=== PATIENT | female | born 1950 | race Caucasian/White ===

== ENCOUNTER → 2016-08-17 12:48 | Outpatient (CLI) | payer MEDICARE ==
[2012-09-22 14:50] VITALS: BMI 24.5
[~2016-08-17 12:48] MED LIST: BACTROBAN NASAL1 GM NASAL; CARAFATE1 G PO; COREG25 MG PO; COZAAR50 MG PO; FLUTICASONE PRO16 GM NASAL; GABAPENTIN100 MG PO; HYDROCODON-ACE1 EAC7 PO; LASIX40 MG PO; METOLAZONE2.5 MG PO; NOVOLIN N100 U/ML SQ; OMEPRAZOLE20 M1 PO; ZOLOFT100 MG PO
[2016-09-05 11:02] VITALS: BMI 25.6
== END | disposition home or self-care (01) ==
LOC: D.MRI 12:48
DX: M19.011 Primary osteoarthritis, right shoulder (principal)

== ENCOUNTER → 2016-08-28 10:45 | Outpatient (CLI) | payer MEDICARE ==
[2012-09-22 14:50] VITALS: BMI 24.5
[2016-09-05 11:02] VITALS: BMI 25.6
== END | disposition home or self-care (01) ==
LOC: D.LABREF 10:45
DX: M19.011 Primary osteoarthritis, right shoulder (principal); Z11.8 Encounter for screening for other infectious and parasitic diseases

== ENCOUNTER 2016-08-30 09:00 | Inpatient (IN) | payer MEDICARE ==
[~2016-08-30] VITALS: Ht 157.5 cm; Wt 71.5 kg
[~2016-08-30 09:00] MED LIST changes: -FLUTICASONE PRO16 GM NASAL; -HYDROCODON-ACE1 EAC7 PO; -ZOLOFT100 MG PO
[2016-08-30 09:18] LABS: BASOPHILS 0.1 % (0.0-2.0); EOSINOPHILS 3.5 % (0-7); HEMATOCRIT 28.6 % (36.0-48.0); HEMOGLOBIN 8.8 g/dL (12-16); IMMATURE GRANULOCYTES 0.7 % (0-5); LYMPHOCYTES 14.9 % (15-50); MCH 27.8 pg (26.0-34.0); MCHC 30.8 g/dL (31.0-37.0); MCV 90.2 fL (80.0-100.0); MEAN PLATELET VOLUME 11.1 fL (7.4-10.4); MONOCYTES 7.7 % (2-11); NEUTROPHILS 73.1 % (40-80); RBC 3.17 10x6/uL (4.00-5.40); WBC 6.9 10x3/uL (4.8-10.8)
[2016-08-30 09:20] LABS: PLATELET COUNT 139 10x3/uL (130-400)
[2016-08-30 09:23] LABS: APPEARANCE HAZY (CLEAR); BILIRUBIN NEGATIVE (NEGATIVE); COLOR YELLOW (YELLOW); GLUCOSE NEGATIVE (NEGATIVE); KETONE NEGATIVE (NEGATIVE); LEUKOCYTE ESTERASE 2+ (NEGATIVE); NITRITE NEGATIVE (NEGATIVE); PROTEIN 1+ mg/dL (NEGATIVE); UROBILINOGEN NORMAL (NORMAL)
[2016-08-30 09:24] LABS: BACTERIA MODERATE /hpf (NONE SEEN); RED CELLS - URINE NONE SEEN /hpf (0-5)
[2016-08-30 09:33] LABS: APTT 32.8 SECONDS (22.8-39.4); INR 1.09 (0.85-1.17); PROTIME 13.9 SECONDS (11.6-15.0)
[2016-08-30 09:39] LABS: ANION GAP 14.9 mmol/L (8-16); CALCIUM 8.4 mg/dL (8.5-10.1); CARBON DIOXIDE 23.9 mmol/L (21.0-32.0); CREATININE - SERUM 2.1 mg/dL (0.6-1.3); POTASSIUM - SERUM 3.8 mmol/L (3.5-5.1)
[2016-08-30] MEDS ORDERED: ZOLOFT100 MG PO (09:39)
[2016-08-30] MEDS ORDERED: FLUTICASONE PRO16 GM NASAL (09:42)
[2016-09-04] VITALS (22 sets, daily range): BP systolic 78–151; BP diastolic 37–71; BMI 25.6
--- NOTE | 2016-09-04 08:44 | NUR ---
RIGHT ARM AND SHOULDER WASHED WITH HIBICLENS AND ALCOHOL PRIOR TO CHLORPREP PER DN
--- NOTE | 2016-09-04 10:00 | NUR ---
RECEIVED TO ROOM 2211 VIA BED FROM PACU. A/O X3. NO C/O PAIN OR DISCOMFORT. EPIDURAL IN PLACE. RIGHT ARM IN IMMOBILIZER. DENIES NEEDS.
[2016-09-04 10:31] LABS: HEMATOCRIT 22.1 % (36.0-48.0)
[2016-09-04 11:00] LABS: HEMOGLOBIN 7.1 g/dL (12-16)
--- NOTE | 2016-09-04 12:18 | NUR ---
TRACY SEN FOR DR. HALE NOTIFIED OF POST OP H&H.
[2016-09-04 15:41] LABS: ANION GAP 12.3 mmol/L (8-16); CALCIUM 7.1 mg/dL (8.5-10.1); CARBON DIOXIDE 22.8 mmol/L (21.0-32.0); CREATININE - SERUM 2.1 mg/dL (0.6-1.3); PHOSPHOROUS 5.4 mg/dL (2.5-4.9); POTASSIUM - SERUM 4.1 mmol/L (3.5-5.1)
--- NOTE | 2016-09-04 16:49 | NUR ---
PRBC UP AT THIS TIME. AT [facility]. VSS. DENIES NEEDS.
--- NOTE | 2016-09-04 17:05 | NUR ---
TRANSFUSION CONTINUES WITHOUT COMPLICATIONS. VSS. DENIES NEEDS.
--- NOTE | 2016-09-04 18:05 | NUR ---
ATE ALL OF SUPPER TRAY. TRANSFUSION CONTINUES WITHOUT COMPLICATIONS. DENIES NEEDS. NO CHANGES NOTED.
--- NOTE | 2016-09-04 19:22 | NUR ---
TRANSFUSION IS COMPLETE AT THIS TIME. VSS. BP IS ON THE LOW SIDE. WILL MONITOR.
[2016-09-05] VITALS: BP 96/59
[2016-09-05 04:00] VITALS: BP 101/57
[2016-09-05 05:47] LABS: HEMATOCRIT 23.6 % (36.0-48.0); MCH 28.7 pg (26.0-34.0); MCHC 31.8 g/dL (31.0-37.0); MCV 90.4 fL (80.0-100.0); MEAN PLATELET VOLUME 11.2 fL (7.4-10.4); RBC 2.61 10x6/uL (4.00-5.40); RDW 16.7 % (11.5-14.5); WBC 7.3 10x3/uL (4.8-10.8)
--- NOTE | 2016-09-05 06:01 | NUR ---
PATIENT RESTING WITH EYES CLOSED. NO VISUAL SIGNS OF DISTRESS. PATIENT'S BED IN LOWEST POSITION AND CALL LIGHT WITHIN REACH.
[2016-09-05 06:06] LABS: ANION GAP 16.1 mmol/L (8-16); POTASSIUM - SERUM 4.1 mmol/L (3.5-5.1)
[2016-09-05 06:14] LABS: CALCIUM 6.9 mg/dL (8.5-10.1); CREATININE - SERUM 2.7 mg/dL (0.6-1.3)
[2016-09-05 06:17] LABS: HEMOGLOBIN 7.5 g/dL (12-16)
--- NOTE | 2016-09-05 08:05 | NUR ---
PT SEEN AND ASSESSED. STATES PAIN CONTROLLED AT 3/10 WITH NO MOVEMENT AND USE OF NARCOTICS AND VICE DETECTIVE MACHINE. IMMOBILIZER AND ICE IN PLACE TO RIGHT SHOULDER. ABLE TO MOVE FINGERS AND ARE WARM AND PINK. HAS NOT VOIDED BUT MINIMAL ALL NIGHT. ENCOURAGED USE OF BEDPAN AND WOULD GIVE TILL 1000 TO VOID WITHOUT IN/OUT CATH. BED ALARM ON. FAMILY AT BEDSIDE
[2016-09-05 08:18] VITALS: BP 89/52
--- NOTE | 2016-09-05 10:53 | NUR ---
called to room per cnas. hard to arouse pt sitting up in chair. rouses after much stimulation. knows where she is. instructed to deep breathe and cough-small crackles heard but states she was a smoker up until 2 years ago. jaron wilson in chair under patient for safety
--- NOTE | 2016-09-05 11:00 | NUR ---
PT OXYGEN ON RA 87-88%. PLACED ON OXYGEN AND REGULATED AT 2LNC TO SAT OF 97-98%. STILL SLEEPY. CALL PLACED TO THERAPY TO PLACE BACK IN BED.
[2016-09-05 11:02] VITALS: Ht 157.5 cm; Wt 71.5 kg
[2016-09-05 11:41] VITALS: BP 73/48
--- NOTE | 2016-09-05 11:55 | NUR ---
PT MORE AWAKE AND ALERT NOW. STATES HAS NO URGE TO VOID. IN AND OUT CATH DONE WITH 700CC YELLOW URINE RETURNED. TOLERATED PROCEDURE WITHOUT COMPLAINTS. BED ALARM ON WITH CALL LIGHT IN REACH
--- NOTE | 2016-09-05 14:28 | NUR ---
PT UNABLE TO VOID ON BEDPAN. WILL TRY AGAIN. DOES NOT FEEL THE URGE TO VOID
--- NOTE | 2016-09-05 15:42 | NUR ---
BP RECHECKED. 100/50. PT AWAKE AND ALERT. STILL NO URGE TO VOID.
[2016-09-05 15:53] VITALS: BP 100/51
--- NOTE | 2016-09-05 18:07 | NUR ---
PT HAS NOT VOIDED SINCE IN/OUT CATH AT 1200 TODAY. HAS BEEN ON BEDPAN X 1 SINCE THEN BUT DOES NOT FEEL THE URGE TO PEE. MORE AWAKE AND ALERT THIS AFTERNOON. C/O DISCOMFORT TO RIGHT SHOULDER AND NORCO GIVEN. BED ALARM ON FOR SAFETY AND CALL LIGHT IN REACH
[2016-09-05 20:00] VITALS: BP 93/53
--- NOTE | 2016-09-05 20:02 | NUR ---
PATIENT SLEEPING IN BED. AROUSES TO VOICE BUT IS DROWSY. HOB 60 DEGREES. RR EVEN AND UNLABORED. O2 @ 2L VIA NC.0 S/S OF DISTRESS. IV TO LEFT FA S/L WITH NO REDNESS OR SWELLING. IMMOBILIZER TO RIGHT SHOULDER AND DRESSING CDI. B/A ON. SRX2. BED LOW. CALL LIGHT WITHIN REACH.
--- NOTE | 2016-09-05 21:40 | NUR ---
ASSESSMENT COMPLETE. NIGHTTIME MEDS GIVEN. PATIENT IS STATING THAT HER SHOULDER IS SORE BUT SHE IS STILL VERY DROWSY AND BP IS LOW. WILL CONTINUE TO MONITOR.
[2016-09-06] VITALS (14 sets, daily range): BP systolic 84–134; BP diastolic 46–74
--- NOTE | 2016-09-06 03:00 | NUR ---
PATIENT HAS NOT VOIDED ALL SHIFT. BLADDER SCAN REVEALED 400ML. PUT PATIENT ON BEDPAN BUT SHE WAS STILL UNABLE TO URINATE. 400 ML OBTAINED THROUGH IN AND OUT CATH.
[2016-09-06 05:34] LABS: BASOPHILS 0 % (0.0-2.0); EOSINOPHILS 1.6 % (0-7); IMMATURE GRANULOCYTES 0.4 % (0-5); LYMPHOCYTES 7.6 % (15-50); MCH 28.9 pg (26.0-34.0); MCHC 32.4 g/dL (31.0-37.0); MCV 89.4 fL (80.0-100.0); MEAN PLATELET VOLUME 11.9 fL (7.4-10.4); NEUTROPHILS 82.4 % (40-80); PLATELET COUNT 105 10x3/uL (130-400); RBC 2.35 10x6/uL (4.00-5.40); RDW 16.6 % (11.5-14.5); WBC 8.4 10x3/uL (4.8-10.8)
[2016-09-06 06:03] LABS: ANION GAP 17.9 mmol/L (8-16); CALCIUM 7.1 mg/dL (8.5-10.1); CARBON DIOXIDE 18.8 mmol/L (21.0-32.0); PHOSPHOROUS 5.5 mg/dL (2.5-4.9); POTASSIUM - SERUM 3.7 mmol/L (3.5-5.1)
[2016-09-06 06:31] LABS: CREATININE - SERUM 3.7 mg/dL (0.6-1.3)
[2016-09-06 06:35] LABS: HEMOGLOBIN 6.8 g/dL (12-16)
--- NOTE | 2016-09-06 07:50 | NUR ---
AWAKE AND ALERT THIS MORNING. WEANED OFF OF OXYGEN AND SATURATIONS 100% ON ROOM AIR. BED ALARM ON AND IN WORKING ORDER. SCD'S ON. SRX2 WITH BED IN LOWEST POSITINO AND WHEELS LOCKED. CALL LIGHT IN REACH, WILL CONTINUE WITH PLAN OF CARE.
--- NOTE | 2016-09-06 07:52 | NUR ---
AWAKE AND ALERT AT THIS TIME. C/O PAIN 8/10 INCISIONALLY. IMMOBILIZER TO RIGHT SHOULDER PRESENT. BED ALARM ON AND SRX2 WITH BED IN LOWEST POSITION AND WHEELS LOCKED. REQUESTING ICE AT THIS TIME. WILL CONTINUE WITH PLAN OF CARE.
--- NOTE | 2016-09-06 09:20 | NUR ---
Patient Name: FRANCA BECERRIL Admission Status: Elective Accout number: [id number] Admission Date: 09-04-2016 : 1950 Admission Diagnosis: Attending: MARTIN Current LOS: 2 Anticipated DC Date: 09-08-2016 Planned Disposition: Home Primary Insurance: MEDICARE A & B Discharge Planning Comments: CM MET WITH PATIENT REGARDING D/C NEEDS AND PLANS. PATIENT STATED SHE LIVES WITH HER SPOUSE AND HE WILL DRIVE HER HOME AT DISCHARGE. PATIENT HAS 2 STEPS W/RAILS TO ENTER HOME AND NO STAIRS INSIDE. PATIENT STATED SHE IS INDEPENDENT WITH HER CARE AND HAS A WALKER, WHEELCHAIR, CANE, BS COMMODE, SHOWER CHAIR, NEBULIZER, AND GLUCOMETER AT HOME. PATIENT CHECKS HER BLOOD SUGAR 2X A DAY. PATIENTS PCP IS DR. RACHEL AND PHARMACY IS [facility]. PATIENT DOES NOT THINK SHE WILL NEED HOME HEALTH. CM WILL CONTINUE TO FOLLOW PATIENT WITH D/C NEEDS AND PLANS. PCP [facility] ) DM (SPOUSE) [phone] Chief Of Hospital Medicine: Shyann Wood Is the patient Alert and Oriented? Yes 0 * How many steps to enter\exit or inside your home? 2/RAILS 0 * PCP DR. RACHEL 0 * Pharmacy [facility] IN [facility] 0 * Preadmission Environment Home with Family 0 * ADLs Independent 0 * Equipment Bedside Commode Cane Glucometer Nebulizer Shower Chair Walker Wheelchair 0 * List name and contact numbers for known caregivers / representatives who currently or will assist patient after discharge: DM (SPOUSE) [phone] 0 * Community resources currently utilized None 0 * Additional services required to return to the preadmission environment? Yes 0 * Can the patient safely return to the preadmission environment? Yes 0 * Has this patient been hospitalized within the prior 30 days at any hospital? No 0 Grand Total: 0
--- NOTE | 2016-09-06 09:50 | NUR ---
IV TO LEFT FOREARM CHECKED FOR PATENCY. NO BLOOD RETURN PRESENT, BUT NO S/S OF INFILTRATION PRESENT. PROVIDED PT WITH INCENTIVE SPIROMETER AND INSTRUCTED ON USE. PT DEMONSTRATED PROPER USE WITH 1,000 ML OF INSPIRATORY VOLUME. UP IN CHAIR WITH ABIMAEL MAT ALARM PER PHYSICAL THERAPY. CALL LIGHT AND WATER IN REACH. WILL CONTINUE WITH PLAN OF CARE.
--- NOTE | 2016-09-06 10:35 | NUR ---
BLOOD TRANSFUSION INITIATED PER ORDER.
--- NOTE | 2016-09-06 10:50 | NUR ---
TRANSFUSION DELAYED D/T IV TO LEFT FOREARM LEAKING AROUND CATH TIP INSERTION SITE.
--- NOTE | 2016-09-06 11:15 | NUR ---
TRANSFUSION OF PRBC'S RE-INIATED AT THIS TIME TO NEW LEFT HAND 20G IV.
--- NOTE | 2016-09-06 11:27 | NUR ---
IV access-20 gauge intracon inserted in left hand x 1 attempt. Damaris Woods RN
--- NOTE | 2016-09-06 14:45 | NUR ---
BLADDER SCAN PERFORMED AND 190 ML OF URINE IN BLADDER. NOTIFIED MCKINLEY THORPE WITH RENAL.
--- NOTE | 2016-09-06 15:30 | NUR ---
16FR MENDEZ CATHETER PLACED X1 ATTEMPT PER ORDER IN STERILE FASHION. PT TOLERATED WITH MINIMAL C/O PAIN AND DISCOMFORT. URINE IS GREENISH, YELLOW IN COLOR AND SEDIMENT PRESENT. POST CARE MENDEZ WIPES USED AND STAT LOCK APPLIED TO LEFT LEG. CALL LIGHT IN REACH, DENIES FURTHER NEEDS. WILL CONTINUE WITH PLAN OF CARE.
--- NOTE | 2016-09-06 22:41 | NUR ---
PT IS AWAKE WATCHING TV WITH NO DISTRESS NOTED. EVEN UNLABORED RESPIRATIONS. HER ARM IS IN A SLING ORDERED. THE BED IS LOW, RAILS UP X'S 2 WITH THE CALL LIGHT AT HAND.
[2016-09-07] VITALS: BP 134/62
[2016-09-07 04:00] VITALS: BP 95/62
[2016-09-07 04:57] LABS: BASOPHILS 0.1 % (0.0-2.0); EOSINOPHILS 1.7 % (0-7); HEMATOCRIT 24.7 % (36.0-48.0); HEMOGLOBIN 8.1 g/dL (12-16); IMMATURE GRANULOCYTES 0.7 % (0-5); LYMPHOCYTES 6.6 % (15-50); MCH 28.8 pg (26.0-34.0); MCHC 32.8 g/dL (31.0-37.0); MCV 87.9 fL (80.0-100.0); MEAN PLATELET VOLUME 11.5 fL (7.4-10.4); MONOCYTES 7.8 % (2-11); NEUTROPHILS 83.1 % (40-80); PLATELET COUNT 104 10x3/uL (130-400); RBC 2.81 10x6/uL (4.00-5.40); RDW 16.3 % (11.5-14.5); WBC 8.2 10x3/uL (4.8-10.8)
[2016-09-07 05:24] LABS: ANION GAP 19.9 mmol/L (8-16); CALCIUM 7.5 mg/dL (8.5-10.1); CARBON DIOXIDE 15.1 mmol/L (21.0-32.0); CREATININE - SERUM 3.4 mg/dL (0.6-1.3); PHOSPHOROUS 5.2 mg/dL (2.5-4.9)
--- NOTE | 2016-09-07 08:00 | NUR ---
PATIENT RECEIVED IN MID LEMON POSITION RESTING QUIETLY. RESPIRATIONS EVEN AND UNLABORED. SIDE RAILS UP X2. BED IN LOW POSITION. CALL LIGHT IN REACH. BED ALARM ON. IVF DECREASED PER ORDERS
[2016-09-07 08:13] VITALS: BP 167/77
--- NOTE | 2016-09-07 09:15 | NUR ---
PATIENT ALERT IN BED. RESPIRATIONS EVEN AND UNLABORED. SCHEDULED MEDICATION ADMINISTERED WELL PRN NORCO. MENDEZ CARE PROVIDED. MENDEZ CATH CARE PROVIDED PER PROTOCOL WITH PROVIDED RODGERS WIPES. MENDEZ D/C PER ORDER BY ANN MARIE LOPEZ. APPROXIMATELY 150CC URINE REMAINED IN COLLECTION BAG. WELL TOLERATED. INSTRUCTED TO CALL FOR ASSIST WHEN NEEDED TO GO TO THE RESTROOM. STATES UNDERSTANDING. CALL LIGHT IN REACH. SIDE RAILS UP X2. BED IN LOW POSITION.
--- NOTE | 2016-09-07 10:30 | NUR ---
PATIENT SITTING UP IN CHAIR AT BEDSIDE. RESPIRATIONS EVEN AND UNLABORED. DENIES NEEDS. CALL LIGHT IN REACH.
[2016-09-07 12:43] VITALS: BP 143/67
--- NOTE | 2016-09-07 15:00 | NUR ---
PATIENT IN LOW LEMON POSITION RESTING QUIETLY. RESPIRATIONS EVEN AND UNLABORED. SIDE RAILS UP X2. BED IN LOW POSITION. CALL LIGHT IN REACH. FAMILY PRESENT.
[2016-09-07 15:50] VITALS: BP 137/65
--- NOTE | 2016-09-07 18:00 | NUR ---
PATIENT UNABLE TO VOID AFTER MENDEZ BEING D/C. BLADDER SCAN SHOWS 334ML. WILL NOTIFY PHYSICIAN.
--- NOTE | 2016-09-07 18:09 | NUR ---
ORDER RECEIVED TO INSERT MENDEZ CATH AND BLADDER TRAIN PER JUDITH ZHENG, DATA COORDINATOR
--- NOTE | 2016-09-07 18:36 | NUR ---
16F MENDEZ CATH PLACED AT THIS TIME PER ORDER. TWO ATTEMPTS. MENDZE SECURED TO LEG AND DRAINING TO GRAVITY. BED IN LOW POSITION AND CALL LIGHT WITHIN REACH. WILL CONTINUE TO MONITOR.
--- NOTE | 2016-09-07 19:38 | NUR ---
PATIENT RESTING IN BED, DENIES NEEDS AT THIS TIME. BED IN LOWEST POSITION AND CALL LIGHT WITHIN REACH.
[2016-09-07 21:03] VITALS: BP 153/68
[2016-09-08 01:17] VITALS: BP 146/72
[2016-09-08 04:00] VITALS: BP 175/75
[2016-09-08 05:21] LABS: BASOPHILS 0.2 % (0.0-2.0); EOSINOPHILS 2.9 % (0-7); HEMATOCRIT 24.1 % (36.0-48.0); LYMPHOCYTES 10.7 % (15-50); MCH 29.3 pg (26.0-34.0); MCHC 33.2 g/dL (31.0-37.0); MCV 88.3 fL (80.0-100.0); MEAN PLATELET VOLUME 11.1 fL (7.4-10.4); MONOCYTES 8.5 % (2-11); NEUTROPHILS 76.7 % (40-80); PLATELET COUNT 122 10x3/uL (130-400); RBC 2.73 10x6/uL (4.00-5.40); RDW 16.2 % (11.5-14.5)
[2016-09-08 05:25] LABS: WBC 5.8 10x3/uL (4.8-10.8)
[2016-09-08 06:01] LABS: ANION GAP 17.6 mmol/L (8-16); CARBON DIOXIDE 18.1 mmol/L (21.0-32.0); CREATININE - SERUM 2.6 mg/dL (0.6-1.3); PHOSPHOROUS 4.3 mg/dL (2.5-4.9); POTASSIUM - SERUM 3.7 mmol/L (3.5-5.1)
--- NOTE | 2016-09-08 07:00 | NUR ---
PATIENT RECEIVED IN LOW LEMON POSITION RESTING QUIETLY. RESPIRATIONS EVEN AND UNLABORED. SLING TO RIGHT ARM. SCDS ON BILATERALLY. SIDE RAILS UP X3. BED IN LOW POSITION. CALL LIGHT IN REACH. BED ALARM ON.
--- NOTE | 2016-09-08 08:22 | NUR ---
PATIENT REPOSITIONED IN BED. WELL TOLERATED. RESPIRATIONS EVEN AND UNLABORED. BREAKFAST TRAY SET UP. SCHEDULED MEDICATION ADMINISTERED. MENDEZ UNCLAMPED. 350CC YELLOW URINE RETURNED TO COLLECTION BAG. DENIES NEEDS. SIDE RAILS UP X2. BED IN LOW POSITION. CALL LIGHT IN REACH. BED ALARM ON.
[2016-09-08 08:24] VITALS: BP 157/80
--- NOTE | 2016-09-08 09:00 | NUR ---
MENDEZ CATH CLAMPED PER BLADDER TRAINING PROTOCOL
--- NOTE | 2016-09-08 11:30 | NUR ---
MENDEZ CATH UNCLAMPED. 150CC URINE RETURNED TO COLLECTION BAG. WILL CONTINUE TO MONITOR.
[2016-09-08 11:57] LABS: % SATURATION 14 % (15-55); IRON 23 ug/dl (35-150); TOTAL IRON BIND CAPACITY 162 ug/dl (260-445); UNSAT IRON BIND CAPACITY 139 ug/dl (150-375)
--- NOTE | 2016-09-08 12:19 | NUR ---
SITTING UP IN CHAIR EATING LUNCH. RESPIRATIONS EVEN AND UNLABORED. FAMILY PRESENT. MENDEZ CLAMPED. CALL LIGHT IN REACH. DENIES NEEDS.
[2016-09-08 12:42] VITALS: BP 158/89
--- NOTE | 2016-09-08 12:45 | NUR ---
Rehab Note- Rehab Prescreen order received. The patient doesn't have a qualifying IRF diagnosis and medical necessity. Thank you for this referral! Comfort Oquendo RN Clinical Liaison, [facility]
--- NOTE | 2016-09-08 13:20 | NUR ---
URINE SAMPLE OBTAINED VIA SAMPLE PORT FROM MENDEZ. PORT SWABBED WITH ALCOHOL SWAB. 10CC CLEAR, YELLOW URINE OBTAINED AND PLACED IN SPECIMEN CUP. MENDEZ CATH UNCLAMPED. 125CC URINE RETURNED TO COLLECTION BAG
[2016-09-08 13:39] LABS: APPEARANCE CLEAR (CLEAR); BILIRUBIN NEGATIVE (NEGATIVE); COLOR YELLOW (YELLOW); GLUCOSE NEGATIVE (NEGATIVE); KETONE NEGATIVE (NEGATIVE); LEUKOCYTE ESTERASE 1+ (NEGATIVE); NITRITE NEGATIVE (NEGATIVE); PROTEIN 2+ mg/dL (NEGATIVE); SPECIFIC GRAVITY 1.015 (1.005-1.020); UROBILINOGEN NORMAL (NORMAL)
[2016-09-08 13:42] LABS: EPITHELIAL CELLS 0-5 /hpf (0-5); RED CELLS - URINE 0-5 /hpf (0-5)
[2016-09-08 13:43] LABS: BACTERIA FEW /hpf (NONE SEEN); MUCUS <1+ /lpf (NONE SEEN)
--- NOTE | 2016-09-08 15:15 | NUR ---
ALERT IN BED. NO SIGNS OF DISTRESS NOTED. FAMILY PRESENT. MENDEZ CLAMPED. SIDE RAILS UP X2. BED IN LOW POSITION. CALL LIGHT IN REACH. SCDS ON BILATERALLY.
--- NOTE | 2016-09-08 16:45 | NUR ---
PATIENT ALERT IN LOW MID LEMON POSITION WATCHING TV. RESPIRATIONS EVEN AND UNLABORED. SCHEDULED MEDICATION ADMINISTERED. MENDEZ UNCLAMPED. 150CC RETURNED TO COLLECTION BAG. CALL LIGHT IN REACH. BED IN LOW POSITION. SIDE RAILS UP X2.
[2016-09-08 18:39] VITALS: BP 151/77
--- NOTE | 2016-09-08 19:20 | NUR ---
PATIENT RESTING IN SEMI-FOWLERS POSITION. PATIENT DENIES NEEDS AT THIS TIME. CLAMPED MENEDZ FOR BLADDER TRAINING. BED IN LOWEST POSITION AND CALL LIGHT WITHIN REACH.
[2016-09-08 20:49] VITALS: BP 186/71
[2016-09-09] VITALS: BP 175/90
[2016-09-09 04:00] VITALS: BP 183/98
[2016-09-09 06:24] LABS: ANION GAP 16.6 mmol/L (8-16); CALCIUM 8.5 mg/dL (8.5-10.1); POTASSIUM - SERUM 3.6 mmol/L (3.5-5.1)
[2016-09-09 06:35] LABS: CREATININE - SERUM 1.8 mg/dL (0.6-1.3)
--- NOTE | 2016-09-09 07:10 | NUR ---
PATIENT RECEIVED ALERT IN BED WATCHING TV. RESPIRATIONS EVEN AND UNLABORED. SIDE RAILS UP X3. BED IN LOW POSITION. CALL LIGHT IN REACH. SCDS ON BILATERALLY. MENDEZ CLAMPED FOR BLADDER TRAINING. BED ALARM ON. DENIES NEEDS.
[2016-09-09 08:07] VITALS: BP 195/93
--- NOTE | 2016-09-09 08:43 | NUR ---
PATIENT ALERT IN BED EATING BREAKFAST. TOLERATING WELL. SCHEDULED MEDICATION ADMINISTERED. IV TUBING CHANGED PER PROTOCOL. DENIES NEEDS. SIDE RAILS UP X2. BED IN LOW POSITION. CALL LIGHT IN REACH.
--- NOTE | 2016-09-09 11:00 | NUR ---
PATIENT SITTING UP IN CHAIR ALERT. RESPIRATIONS EVEN AND UNLABORED. SCHEDULED CARAFATE ADMINISTERED. CALL LIGHT IN REACH.
[2016-09-09 12:03] VITALS: BP 198/78
--- NOTE | 2016-09-09 14:00 | NUR ---
PATIENT SITTING UP IN CHAIR AT BEDSIDE ALERT. NO SIGNS OF DISTRESS NOTED. AT BEDSIDE. CALL LIGHT IN REACH.
[2016-09-09 16:07] VITALS: BP 184/70
--- NOTE | 2016-09-09 16:57 | NUR ---
PATIENT ALERT IN BED WITH FAMILY PRESENT. REPOSITIONED FOR COMFORT. SCHEDULED MEDICATION ADMINISTERED. MENDEZ CATH CLAMPED FOR BLADDER TRAINING. DENIES NEEDS. SIDE RAILS UP X2. BED IN LOW POSITION. CALL LIGHT IN REACH.
--- NOTE | 2016-09-09 18:32 | NUR ---
ALERT IN BED WATCHING TV. DENIES NEEDS. BED IN LOW POSITION. SIDE RAILS UP X2. CALL LIGHT IN REACH.
--- NOTE | 2016-09-09 19:55 | NUR ---
CLAMPED PATIENT'S MENDEZ. PATIENT DENIES OTHER NEEDS AT THIS TIME. BED IN LOWEST POSITION AND CALL LIGHT WITHIN REACH.
[2016-09-09 21:43] VITALS: BP 184/90
[2016-09-10 05:00] VITALS: BP 190/99
[2016-09-10 05:58] LABS: ANION GAP 15.8 mmol/L (8-16); CALCIUM 8.2 mg/dL (8.5-10.1); CARBON DIOXIDE 20.5 mmol/L (21.0-32.0); CREATININE - SERUM 1.4 mg/dL (0.6-1.3); POTASSIUM - SERUM 3.3 mmol/L (3.5-5.1)
--- NOTE | 2016-09-10 07:00 | NUR ---
REPORT RECEIVED FROM [employer] NURSE. CALL LIGHT IN REACH.
[2016-09-10] MEDS ORDERED: HYDROCODON-ACE1 EAC7 PO (08:13)
[2016-09-10 08:34] VITALS: BP 176/87
--- NOTE | 2016-09-10 09:01 | NUR ---
AM MEDS ADMINISTERED PER MILADIS JOHNSON. CALL LIGHT IN REACH.
--- NOTE | 2016-09-10 09:14 | NUR ---
CM REASSESSMENT NOTE: PATIENT DISCHARGING HOME - DRIVING HER. PATIENT SIGNED THE IMM NOTICE. PATIENTS APPT. IS SATURDAY AT 1 PM AND NEEDS TO BE THERE AT 12:30 PM FOR PAPERWORK-PATIENT AWARE OF THIS.
--- NOTE | 2016-09-10 10:13 | NUR ---
REMOVED CATHETER PER ORDER. REMOVED 10CC OF SALINE FROM BALLOON. PATIENT TOLERATED WELL. PATIENT IS SITTING UP IN CHAIR. INSTRUCTED TO CALL IF NEEDED ANYTHING. VERBALIZED UNDERSTANDING. CALL LIGHT IN REACH.
--- NOTE | 2016-09-10 11:52 | NUR ---
PATIENT COMPLAININ OF PAIN IN HER ARM AND A HEADACHE REQUESTED SOMETHING FOR PAIN. ADMINISTERED MEDS ORDERD. PATIENT FAMILY MEMBER IN THE ROOM. PATIENT SITTING UP IN CHAIR WAITING FOR LUNCH. GOING TO CHANGE DRESSING TO HER RIGHT SHOULDER/ARM. CALL LIGHT IN REACH. INSTRUCTED TO CALL IF NEEDED ANYTHING. PATIENT VERBALIZED UNDERSTANDING.
--- NOTE | 2016-09-10 12:00 | NUR ---
WITHOUT DISTRESS.GLAD FOR DC HOME.CALL LIGHT IN REACH
--- NOTE | 2016-09-10 12:30 | NUR ---
DC'D TO VECHICLE VIA WHEELCHAIR TO .
[2016-09-11 17:10] LABS: SPE - A/G RATIO 0.6 (0.7-1.7); SPE - ALBUMIN 2.4 g/dL (2.9-4.4); SPE - ALPHA-1 GLOBULIN 0.3 g/dL (0.0-0.4); SPE - BETA GLOBULIN 0.9 g/dL (0.7-1.3); SPE - GAMMA GLOBULIN 1.5 g/dL (0.4-1.8); SPE - M-SPIKE Not Observed g/dL (Not Observed); SPE - TOTAL PROTEIN 6.1 g/dL (6.0-8.5)
--- NOTE | 2016-09-18 12:19 | OP ---
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 POSTOPERATIVE DIAGNOSIS: Right shoulder degenerative joint disease with a rotator cuff tear. PROCEDURE PERFORMED: Right shoulder reverse total shoulder arthroplasty using the Tornier system. SURGEON: Da Olvera MD ANESTHESIA: General with interscalene block for postop pain. CONDITION: She tolerated the procedure well, was transferred to the recovery room in stable condition at the termination of the procedure. INDICATIONS: This is a 66-year-old female with advanced degenerative change of her shoulder with a failed cuff. We discussed the options and she elected to proceed with a reverse total shoulder arthroplasty. OPERATIVE REPORT: The patient was taken to the operating room, placed in supine position. General anesthesia was obtained. She did have the interscalene block placed in the preop holding area. In the operating room, after she was prepped and draped, she had an Ioban dressing placed. She did receive antibiotics per protocol. She then had a deltopectoral incision made. This was taken down, the cephalic vein was identified and taken laterally with the deltoid. I identified the conjoint tendon. This was retracted medially. The subscapularis was taken down, stitch was placed in this. The humerus was externally rotated and the humeral head was delivered out of the socket. I then proceeded to place a guide. I then made a cut of the proximal humerus. This took off just ahead ____ anatomical neck. I then broached this up to a size 3b. This felt appropriate. I therefore placed this with a protective tray following which I then placed anterior and posterior glenoid retractors removing the soft tissue from about the glenoid. I then placed the center low pin, overdrilled this and then reamed and placed in the glenoid baseplate. Once this was in position, I then placed the superior and inferior locking screws and then the 2 compression screws and placed anterior and posterior. Once this was accomplished, I then proceeded to use the reamer, I removed the osteophytes from about the glenoid. Once this was accomplished, the glenosphere was placed. This was a 36-mm head. The baseplate was 25 mm. I then trialed, the size 6 and I think this felt appropriate. I therefore took everything out, placed the final 3b stem, placed the final 6 mm poly. This felt appropriate with motion, did not have any overall laxity. I could take her through a good range of motion without any significant shocking. Once this was accomplished, I then copiously irrigated, then closed the subscapularis using #1 Cliff wire. I then closed with #1 Vicryl followed by 2-0 Vicryl, then dean. She tolerated this well, was awakened and transferred to recovery room in stable condition, having tolerated the procedure well. TRANSINT:[id number] Voice Confirmation ID: [id number] DOCUMENT ID: [id number] OPERATIVE REPORT [id number] FRANCA BECERRIL, MELIDA STEVENS MD at 1219 CC: [id number] DICTATION DATE: 09/04/16 0952 ENTRY TABLE OPERATOR: 09/04/16 1740 DIS IN 09/10/16 [facility] [address] [place] [address]
--- NOTE | 2016-10-02 16:33 | DS ---
PATIENT:FRANCA BECERRIL :50 MEDICAL RECORD: [id number] DISCHARGE SUMMARY ADMISSION DATE: 09/04/16 DISCHARGE DATE: 09/10/16 DATE OF ADMISSION: 09/07/2016 DATE OF DISCHARGE: 09/10/2016 ADMITTING DIAGNOSIS: Right shoulder degenerative joint disease. DISCHARGE DIAGNOSIS: Right shoulder degenerative joint disease. PROCEDURE PERFORMED DURING THE HOSPITALIZATION: Right reverse total shoulder arthroplasty. She additionally has history of acute renal failure and some chronic kidney disease, which she did require the prolongation of her hospital stay. HISTORY OF PRESENT ILLNESS: This is a 66-year-old female with a significant amount of degenerative changes in her right shoulder. She was admitted to the hospital on the , underwent a right reverse total shoulder arthroplasty. She overall did very well with the surgery. She did postoperatively have some problems with kidney function, did have a consultation for this and did have a problem with urination; therefore, her discharge became delayed because of the kidney function, which she progressed at an acceptable fashion for the shoulder and once her kidney function returned, she was then discharged. DISCHARGE DIAGNOSES: 1. Shoulder degenerative joint disease. 2. Postop acute blood loss anemia. 3. Acute renal failure. 4. She has type 2 diabetes and chronic kidney disease. PLAN: Would be for her to see us back in the office in about 2-3 weeks. She is to continue on post-total shoulder arthroplasty protocols, on her pain meds and call if she is having problems. TRANSINT:[id number] Voice Confirmation ID: [id number] DOCUMENT ID: [id number] MELIDA HALE MD at 1633 CC: [id number] DICTATION DATE: 09/25/16 1016 DENTAL CHAIR ASSEMBLER: 09/25/16 2101 DIS IN 09/10/16 [place] [id number] [place] [id number]
== END 2016-09-10 12:30 | disposition home or self-care (01) | DRG 483 ==
LOC: D.M2 09:00 → D.MS 09-04 05:10 → D.SDCHOLD 09-04 05:10 → D.M2 09-04 07:30 → D.MS 09-04 08:38 → D.M2 09-04 09:00 → D.SDCHOLD 09-04 09:00 → D.MS 09-10 12:30
PROVIDERS: Internal Medicine; Internal Medicine Nephrology; ADMIT Orthopaedic Surgery Sports Medicine
PROC: 0RRJ00Z Replacement of Right Shoulder Joint with Reverse Ball and Socket Synthetic Substitute, Open Approach (ICD-10-PCS; principal; 2016-09-04 07:30)
DX: M19.011 Primary osteoarthritis, right shoulder (principal); N17.9 Acute kidney failure, unspecified; E87.2 Acidosis; D62 Acute posthemorrhagic anemia; E11.22 Type 2 diabetes mellitus with diabetic chronic kidney disease; I12.9 Hypertensive chronic kidney disease with stage 1 through stage 4 chronic kidney disease, or unspecified chronic kidney disease; N18.9 Chronic kidney disease, unspecified; I25.10 Atherosclerotic heart disease of native coronary artery without angina pectoris; Z95.1 Presence of aortocoronary bypass graft; J44.9 Chronic obstructive pulmonary disease, unspecified; R33.9 Retention of urine, unspecified; R41.0 Disorientation, unspecified; D64.9 Anemia, unspecified; D69.6 Thrombocytopenia, unspecified

== ENCOUNTER 2017-12-18 11:31 | Outpatient (CLI) | payer MEDICARE ==
[~2017-12-18] VITALS: Ht 157.5 cm; Wt 67.3 kg
[~2017-12-18 11:31] MED LIST changes: +FLUTICASONE PRO16 GM NASAL; +HYDROCODON-ACE1 EAC7 PO; +ZOLOFT100 MG PO
[2017-12-18 12:27] VITALS: Ht 157.5 cm; Wt 67.3 kg
== END 2017-12-18 21:15 | disposition home or self-care (01) ==
LOC: D.OPS 11:31 → D.CT 13:30 → D.US 13:30 → D.OPS 21:15
DX: I65.21 Occlusion and stenosis of right carotid artery (principal)

== ENCOUNTER 2018-03-05 10:54 | Outpatient (CLI) | payer MEDICARE ==
[~2018-03-05] VITALS: Ht 157.5 cm; Wt 66.8 kg
--- NOTE | ~2018-03-05 | HEMODYNAMI ---
PATIENT:FRANCA BECERRIL MEDICAL RECORD: [id number] : 50 LOCATION:D.CAT ADMISSION DATE: 03/05/18 Generatedon:03/05/201813:15 Patient name: FRANCA BECERRIL Patient #: [id number] SSN: : 1950 Date of study: 03/05/2018 Page: Of Hemodynamic Procedure Report Patient Data Patient Demographics Procedure consent was obtained First Name: FRANCA Gender: Female Last Name: JERRICA : 1950 Middle Initial: R Age: 67 year(s) Patient #: [id number] Race: Unknown Additional ID: [id number] Contact details Address: [address] [place] [address] State: [place] City: [place] Zip code: [address] Admission Admission Data Admission Date: 03/05/2018 Admission Time: 10:54 Height (in.): 62 BSA: 1.69 (m2) Height (cm.): 157.48 BMI: 27.25 (kg/m2) Weight (lbs.): 149 Weight (kg.): 67.59 Procedure Procedure Types Cath Procedure Diagnostic Procedure Cardioversion External Procedure Description Procedure Date Procedure Date: 03/05/2018 Procedure Start Time: 12:55 Procedure End Time: 13:15 Procedure Staff Name Function Jose Byrd MD Performing Physician Johnna Calderon RT Monitor Charles Keyes RN Nurse Tasha Valerio RT Scrub Katie Castorena CRNA Additional personnel Procedure Data Cath Procedure Estimated blood loss: 0 ml Procedure Medications Medication Administration Route Dosage Oxygen etCO2 Nasal cannula 2 l/min Refer to Anesthesia Notes for Sedation Medications Hemodynamics Rest BSA: 1.69 (m2) O2 Consumption: Estimated: 169.83 (ml/min) O2 Consumption indexed : Estimated:100.49 (ml/min/m) Heart Rate: 90 (bpm) Snapshots Pre Cath Intra NCS Post Cath Vital Signs Time Heart Resp SPO2 etCO2 NIBP (mmHg) Rhythm Pain Sedation Rate (ipm) (%) (mmHg) Status Level (bpm) 12:48:33 84 18 94 0 155/85(124) A-Fib 0 (11) 10(A) , No pain 12:52:49 93 25 100 29.2 171/105(135) A-Fib 0 (11) 10(A) , No pain 12:57:09 98 15 100 23.2 168/104(137) A-Fib 0 (11) 9(A) , No pain 13:02:26 68 32 100 26.9 161/94(125) A-Fib 0 (11) 9(A) , No pain 13:06:50 64 26 100 27.7 145/78(121) A-Fib 0 (11) 9(A) , No pain 13:11:03 64 21 100 28.4 147/80(122) NSR w/ ST 0 (11) 10(A) Elevation , No pain 13:15:02 19.4 No Cuff NSR w/ ST 0 (11) 10(A) Elevation , No pain Medications Time Medication Route Dose Verified Delivered Reason Notes Effective ness by by 12:51:18 Oxygen etCO2 2 Josefernandez Soto used for Nasal l/min Carson Keyes tool smith cannula 12:51:25 Refer to Jose Charles Anesthesia Carson Keyes RN Notes for Sedation Medications Procedure Log Time Note 12:35:09 Patient Height : 62 inches 12:35:17 Patient Weight : 149 lbs 12:35:58 Diagnostic Cath status Elective 12:36:00 Charles Keyes RN sent for patient. Start room use. 12:36:02 Time tracking: Regular hours (M-F 7:00 - 5:00) 12:36:07 Plan of Care:Hemodynamics will remain stable., Cardiac rhythm will remain stable., Comfort level will be maintained., Respiratory function will remain adequate., Patient/ family verbilizes understanding of procedure., Procedure tolerated without complication., Recovers from procedure without complications.. 12:36:15 Patient received from Pre/Post Procedure Room to CCL 2 Alert and oriented. Tansferred to table in Supine position. 12:46:34 Warm blankets applied, and cheryle hugger turned on for patient comfort. 12:46:35 Correct patient and procedure confirmed by team. 12:46:36 Signed procedure consent form obtained from patient. 12:46:39 ECG and BP/O2 sat monitors applied to patient. 12:46:39 Vital chart was started 12:46:49 Baseline sample Acquired. 12:46:50 Full Disclosure recording started 12:46:54 H&P Date Dictated: 03/05/2018 Within 30 days and on chart., H&P Addendum completed by physician on day of procedure. (MUST COMPLETE FOR ALL OUTPATIENTS). 12:46:56 Pre-procedure instructions explained to patient. 12:46:57 Pre-op teaching completed and patient verbalized understanding. 12:46:58 Family in waiting room. 12:46:59 Patient NPO since Midnight. 12:47:01 Is the patient allergic to Iodine/contrast media? No. 12:47:03 Was the patient premedicated? No 12:47:18 Is patient on blood thinner?Yes 12:47:29 ACC The patient was administered the following blood thiners within the last 24 hours: Xarelto 12:47:31 Patient diabetic? Yes. 12:47:31 If diabetic: On Metformin? No 12:47:34 Previous problem with sedation/anesthesia? No ? 12:47:40 Snore? No 12:47:41 Sleep apnea? No 12:47:42 Deviated septum? No 12:47:43 Opens mouth fully? Yes 12:47:43 Sticks out tongue? Yes 12:47:49 Airway obstruction? Yes asthma 12:47:53 Dentures? Yes in tight 12:47:56 Pre procedure: right dorsailis pedis pulse 2+ Normal; easily identifiable; not easily obliterated 12:47:58 Pre procedure: left dorsailis pedis pulse 2+ Normal; easily identifiable; not easily obliterated 12:48:01 Patient pain scale 0/10 ?. 12:48:07 IV patent on arrival in left forearm with 0.9% NaCl at [facility]. 12:48:09 Lab results completed and on chart. 12:48:19 Alarms reviewed by R. N. 12:48:19 Sharps counted by scrub and verified by R.N. 12:51:18 Oxygen 2 l/min etCO2 Nasal cannula was administered by Charles Keyes RN; used for procedure; 12:51:25 Refer to Anesthesia Notes for Sedation Medications was administered by Charles Keyes RN; ; 12:54:17 Physician arrived 12:54:18 --------ALL STOP TIME OUT------ 12:54:21 Final Timeout: patient, procedure, and site verified with staff and physician. All members of the team are in agreement. 12:54:29 Physical assessment completed. ASA score P 2 - A patient with mild systemic disease as per Jose Byrd MD. 12:54:34 Sedation plan: TIVA Medication:Propofol 12:55:25 Katie Castorena CRNA present and monitoring patient for TIVA. 12:55:36 Procedure started. 12:56:25 Quick combo pads placed on patients chest and back. 12:56:41 Quick Combo opened to sterile field. 12:59:33 Shock delivered. 12:59:38 Patient cardioverted to unchanged.. 13:01:05 Defibrillator synced and charged to 200 Joules. 13:01:33 Shock delivered. 13:07:43 Patient cardioverted to sinus rhythm . 13:07:50 Procedure ended.(Physican Out) 13:08:50 Insertion/operative site no bleeding no hematoma. 13:08:53 Post Procedure Pulses reassessed and unchanged 13:08:57 Post-procedure physical assessment completed. ASA score P 2 - A patient with mild systemic disease as per Jose Byrd MD. 13:09:00 Post procedure rhythm: sinus rhythm 13:09:03 Estimated blood loss: 0 ml 13:09:08 Post procedure instruction explained to patient.Patient verbalizes understanding. 13:09:16 Procedure and supply charges have been captured, reviewed, submitted and are correct. 13:14:58 Vital chart was stopped 13:15:00 See physician's report for complete and final results. 13:15:03 Report given to Pre/Post Procedure Room. 13:15:06 Patient transfered to Pre/Post Procedure Room with Stretcher. 13:15:09 Procedure ended. 13:15:09 Full Disclosure recording stopped 13:15:11 End room use (Document Last) Device Usage Item Manufacture Quantity Catalog Hospital Part Current Minimal Lot# / Name Number Charge Number Allen choi# Code Soundsupply 1 [id number] 5 Combo Signature Audit [place] Stage Time Signature Unsigned Intra-Procedure 03/05/2018 Johnna Calderon 1:15:28 PM RT(R) Signatures Monitor : Johnna Calderon Signature : RT Date : Time : [address] [address]
[2018-03-05] MEDS ORDERED: FUROSEMIDE40 MG PO (11:35)
[2018-03-05] MEDS ORDERED: LIPITOR10 MG PO (11:35)
[2018-03-05] MEDS ORDERED: GLIMEPIRIDE1 MG PO (11:36)
[2018-03-05] MEDS ORDERED: COREG12.5 MG PO (11:36)
[2018-03-05] MEDS ORDERED: BETAPACE 80 MG80 MG PO (11:37)
[2018-03-05] MEDS ORDERED: XARELTO20 MG PO (11:37)
[2018-03-05 11:48] VITALS: BP 145/80; Ht 157.5 cm; Wt 66.8 kg
[2018-03-05 11:49] LABS: BASOPHILS 0.2 % (0-2); EOSINOPHILS 1.7 % (0-7); HEMATOCRIT 33.6 % (36.0-48.0); HEMOGLOBIN 10.7 g/dL (12-16); IMMATURE GRANULOCYTES 0.2 % (0-5); LYMPHOCYTES 14.5 % (15-50); MCH 29.3 pg (26.0-34.0); MCHC 31.8 g/dL (31.0-37.0); MCV 92.1 fL (80.0-100.0); MEAN PLATELET VOLUME 11.7 fL (7.4-10.4); NEUTROPHILS 77.4 % (40-80); RBC 3.65 10x6/uL (4.00-5.40); RDW 15.2 % (11.5-14.5); WBC 6.5 10x3/uL (4.8-10.8)
[2018-03-05 11:59] LABS: PLATELET COUNT 154 10x3/uL (130-400)
[2018-03-05 12:01] LABS: CALCIUM 7.6 mg/dL (8.5-10.1); CARBON DIOXIDE 25.7 mmol/L (21.0-32.0); CREATININE - SERUM 2.3 mg/dL (0.6-1.3); POTASSIUM - SERUM 3.7 mmol/L (3.5-5.1)
[2018-03-05 12:03] LABS: INR 1.89 (0.85-1.17); PROTIME 21.1 SECONDS (11.6-15.0)
[2018-04-14] MEDS ORDERED: FOLIC ACID1 MG PO (11:22)
== END 2018-03-05 14:30 | disposition home or self-care (01) ==
LOC: D.CATH 10:54
PROVIDERS: Internal Medicine Cardiovascular Disease
DX: I48.91 Unspecified atrial fibrillation (principal); Z79.01 Long term (current) use of anticoagulants; Z01.812 Encounter for preprocedural laboratory examination

== ENCOUNTER → 2018-03-11 09:27 | Outpatient (CLI) | payer MEDICARE ==
[2018-03-05 11:48] VITALS: BMI 26.9
[~2018-03-11 09:27] MED LIST changes: +BETAPACE 80 MG80 MG PO; +COREG12.5 MG PO; +FOLIC ACID1 MG PO; +FUROSEMIDE40 MG PO; +GLIMEPIRIDE1 MG PO; +LIPITOR10 MG PO; +XARELTO20 MG PO
== END | disposition home or self-care (01) ==
LOC: D.RT 09:27
DX: J44.9 Chronic obstructive pulmonary disease, unspecified (principal)

== ENCOUNTER 2018-04-14 12:23 | Outpatient (CLI) | payer MEDICARE ==
[~2018-04-14] VITALS: Ht 157.5 cm; Wt 66.8 kg
--- NOTE | ~2018-04-14 | HEMODYNAMI ---
PATIENT:FRANCA BECERRIL MEDICAL RECORD: [id number] : 50 LOCATION:DDreCAT ADMISSION DATE: 04/14/18 Generatedon:04/14/201813:55 Patient name: FRANCA BECERRIL Patient #: [id number] SSN: : 1 08/27/1949 Date of study: 04/14/2018 Page: Of Hemodynamic Procedure Report Patient Data Patient Demographics Procedure consent was obtained First Name: FRANCA Gender: Female Last Name: JERRICA : 1950 Middle Initial: R Age: 67 year(s) Patient #: [id number] Race: Unknown Additional ID: [id number] Contact details Address: [address] [place] [address] State: [place] City: [place] Zip code: [address] Past Medical History Allergies: No known allergies Admission Admission Data Admission Date: 04/14/2018 Admission Time: 12:23 Procedure Procedure Types Cath Procedure Diagnostic Procedure LHC LHC w/Coronaries w/Grafts Aortic Root Angiography Sedation Charges Moderate Sedation up to 30 minutes Procedure Description Procedure Date Procedure Date: 04/14/2018 Procedure Start Time: 13:17 Procedure End Time: 13:53 Procedure Staff Name Function Jose Byrd MD Performing Physician Rose Elizondo RT Monitor Lucas Leiva RN Nurse Justo Daily RT Scrub Darian Crawford RT Regional Program Manager Charles Keyes RN Regional Program Manager Pippa Oneal RT Monitor Procedure Data Cath Procedure Fluoroscopy Diagnostic fluoroscopy Total fluoroscopy Time: 7.7 time: 7.7 min min Diagnostic fluoroscopy Total fluoroscopy dose: 670 dose: 670 mGy mGy Contrast Material Contrast Material Type Amount (ml) Isovue 300 128 Entry Location Entry Primary Successful Side Size Upsize Upsize Entry Closure Succes sful Closure Location (Fr) 1 (Fr) 2 (Fr) Remarks Device Remarks Femoral Right 5 Fr Exoseal artery Estimated blood loss: 5 ml Diagnostic catheters Device Type Used For End Catheter Placement MULTIPACK JL 4.0 5Fr Left Coronary catheter Angiography DIAGNOSTIC JL 5 5Fr Left Coronary catheter ([id number]) Angiography DIAGNOSTIC AR MOD 5Fr Procedure Catheter ([id number]) DIAGNOSTIC AL 1 5Fr Procedure catheter ([id number]) DIAGNOSTIC LCB 5Fr Procedure catheter ([id number]) MULTIPACK 3DRC 5Fr Procedure catheter DIAGNOSTIC AR 2 MOD 5 Fr Procedure catheter ([id number]) MULTIPACK Pigtail 5 Fr Procedure catheter Procedure Complications No complications Procedure Medications Medication Administration Route Dosage Oxygen etCO2 Nasal cannula 2 l/min Lidocaine 2% added to field 20 Heparin Flush Bag added to field 2 bags (1000units/500ml NS) 0.9% NaCl I.V. 100 ml/hr Versed I.V. 1 mg Fentanyl I.V. 50 mcg Versed I.V. 1 mg Hemodynamics Rest Heart Rate: 71 (bpm) Pressure Samples Time Site Value (mmHg) Purpose Heart Use Rate(bpm) 13:37 LV 137/2,16 Snapshot 66 Gradients Valve Time Site Site Mean SEP/DFP Peak To Heart Use 1 2 (mmHg) (sec/min) Peak Rate (mmHg) (bpm) Aortic 13:38 LV AO 68 Snapshots Pre Cath Intra NCS Post Cath Vital Signs Time Heart Resp SPO2 etCO2 NIBP (mmHg) Rhythm Pain Sedation Rate (ipm) (%) (mmHg) Status Level (bpm) 13:08:01 71 17 98 29.9 187/76(145) NSR 0 (11) 10(A) , No pain 13:12:48 70 18 93 33.7 170/89(135) NSR 0 (11) 10(A) , No pain 13:17:32 69 30 96 11.2 144/76(119) NSR 0 (11) 9(A) , No pain 13:22:19 67 14 98 34.4 127/62(103) NSR 0 (11) 9(A) , No pain 13:27:02 67 17 98 33.7 121/68(109) NSR 0 (11) 9(A) , No pain 13:31:42 72 15 99 34.4 127/69(101) NSR 0 (11) 9(A) , No pain 13:36:25 66 16 99 32.9 125/70(106) NSR 0 (11) 9(A) , No pain 13:41:06 67 16 100 32.1 130/71(106) NSR 0 (11) 9(A) , No pain 13:45:47 69 17 98 32.9 134/80(93) NSR 0 (11) 9(A) , No pain 13:50:45 70 19 99 13.4 Measuring NSR 0 (11) 9(A) , No pain 13:51:06 67 15 99 14.2 156/80(124) NSR 0 (11) 9(A) , No pain Medications Time Medication Route Dose Verified Delivered Reason Notes Eff ectiveness by by 13:10:57 Oxygen etCO2 2 Jose Jose used for Nasal l/min Carson Byrd MD procedure cannula 13:11:27 Lidocaine 2% added 20ml Jose Jose for local to vial Carson Byrd MD anesthetic field 13:11:35 Heparin Flush added 2 Jose Jose used for Bag to bags Carson Byrd MD procedure (1000units/500ml field NS) 13:11:45 0.9% NaCl I.V. 100 Jose Buffie Per ml/hr Carson Keyes RN physician 13:11:51 Versed I.V. 1 mg Jose Buffie for Carson Keyes RN sedation 13:13:33 Fentanyl I.V. 50 Jose Buffie for mcg Carson Keyes RN sedation 13:15:01 Versed I.V. 1 mg Jose Buffie for Carson Keyes RN sedation Procedure Log Time Note 12:53:29 Time tracking: Regular hours (M-F 7:00 - 5:00) 12:53:33 Plan of Care:Hemodynamics will remain stable., Cardiac rhythm will remain stable., Comfort level will be maintained., Respiratory function will remain adequate., Patient/ family verbilizes understanding of procedure., Procedure tolerated without complication., Recovers from procedure without complications.. 12:53:43 Darian Crawford RT(R) sent for patient. Start room use. 12:58:42 Patient received from Pre/Post Procedure Room to CCL 1 Alert and oriented. Tansferred to table in Supine position. 13:01:23 Warm blankets applied, and cheryle hugger turned on for patient comfort. 13:01:23 Correct patient and procedure confirmed by team. 13:01:25 Signed procedure consent form obtained from patient. 13:01:25 ECG and BP/O2 sat monitors applied to patient. 13:01:26 Full Disclosure recording started 13:06:57 Vital chart was started 13:06:59 Rhythm: sinus rhythm 13:07:13 H&P Date Dictated: 04/03/2018 Within 30 days and on chart., H&P Addendum completed by physician on day of procedure. (MUST COMPLETE FOR ALL OUTPATIENTS). 13:07:15 Pre-procedure instructions explained to patient. 13:07:15 Pre-op teaching completed and patient verbalized understanding. 13:07:17 Family in waiting room. 13:07:18 Patient NPO since Midnight. 13:07:32 Patient allergic to No known allergies 13:07:36 Is the patient allergic to Iodine/contrast media? No. 13:07:40 Is patient on blood thinner?No 13:07:43 Patient diabetic? Yes. 13:07:44 If diabetic: On Metformin? No 13:07:52 Previous problem with sedation/anesthesia? No ? 13:07:54 Snore? Yes 13:07:57 Sleep apnea? No 13:07:58 Deviated septum? No 13:07:59 Opens mouth fully? Yes 13:08:00 Sticks out tongue? Yes 13:08:05 Airway obstruction? Yes COPD 13:08:18 Dentures? Yes TOP IN, BOTTOM OUT 13:08:23 Pre procedure: right dorsailis pedis pulse 2+ Normal; easily identifiable; not easily obliterated 13:08:26 Patient pain scale 0/10 ?. 13:08:36 IV patent on arrival in left forearm with 0.9% NaCl at O. 13:08:44 Lab results completed and on chart. 13:08:49 Right groin area was prepped with chlora-prep and draped in sterile fashion 13:08:50 Alarms reviewed by R. N. 13:08:50 Sharps counted by scrub and verified by R.N. 13:08:54 Use device set Femoral Dx 13:08:54 ACIST Syringe (75311) opened to sterile field. 13:08:55 Bag Decanter (2002S) opened to sterile field. 13:08:56 Medline Cath Pack ([id number]) opened to sterile field. 13:08:56 DIAGNOSTIC WIRE .035 260cm J wire (630287) opened to sterile field. 13:08:58 ACIST Hand Control (24835) opened to sterile field. 13:08:58 ACIST Manifold (70116) opened to sterile field. 13:08:58 DIAGNOSTIC Multipack 5Fr catheter set ([id number]) opened to sterile field. 13:08:59 Tegaderm 4 x 4 (1626W) opened to sterile field. 13:09:00 SHEATH Prelude 5Fr 0.035 (CHC-6K-28-035) opened to sterile field. 13:10:38 Final Timeout: patient, procedure, and site verified with staff and physician. All members of the team are in agreement. 13:10:39 Right groin site verified by team. 13:10:42 Physical assessment completed. ASA score P 2 - A patient with mild systemic disease as per Jose Byrd MD. 13:10:46 Sedation plan: IV Moderate Sedation Medication:Versed, Fentanyl 13:10:57 Oxygen 2 l/min etCO2 Nasal cannula was administered by Jose Byrd MD; used for procedure; 13:11:27 Lidocaine 2% 20ml vial added to field was administered by Jose Byrd MD; for local anesthetic; 13:11:35 Baseline sample Acquired. 13:11:35 Heparin Flush Bag (1000units/500ml NS) 2 bags added to field was administered by Jose Byrd MD; used for procedure; 13:11:45 0.9% NaCl 100 ml/hr I.V. was administered by Charles Keyes RN; Per physician; 13:11:51 Versed 1 mg I.V. was administered by Charles Keyes RN; for sedation; 13:13:33 Fentanyl 50 mcg I.V. was administered by Charles Keyes RN; for sedation; 13:15:01 Versed 1 mg I.V. was administered by Charles Keyes RN; for sedation; 13:16:59 Procedure started. 13:17:07 Local anesthetic to right femoral artery with Lidocaine 2% by Jose Byrd MD.INITIAL ACCESS ONLY 13:17:09 Zero performed for pressure channel P1 13:19:11 A 5 Fr sheath was inserted into the Right Femoral artery 13:19:46 A MULTIPACK JL 4.0 5Fr catheter was advanced over the wire and used for Left Coronary Angiography. REMOVED, UNABLE TO CANNULATE 13:21:22 A DIAGNOSTIC JL 5 5Fr catheter ([id number]) was advanced over the wire and used for Left Coronary Angiography. 13:23:00 Catheter removed. 13:24:28 A DIAGNOSTIC AR MOD 5Fr Catheter ([id number]) was advanced over the wire and used for Procedure. 13:26:17 UNABLE TO ENGAGE 13:26:18 Catheter exchanged over wire. 13:27:12 A DIAGNOSTIC AL 1 5Fr catheter ([id number]) was advanced over the wire and used for Procedure. 13:28:03 RCA angiography performed. 13:28:19 Catheter exchanged over wire. 13:29:11 A DIAGNOSTIC LCB 5Fr catheter ([id number]) was advanced over the wire and used for Procedure. 13:30:31 SVG to OM angiography performed. 13:31:00 Catheter exchanged over wire. 13:32:14 A MULTIPACK 3DRC 5Fr catheter was advanced over the wire and used for Procedure. 13:34:00 HUBER to LAD angiography performed. 13:34:11 Catheter exchanged over wire. 13:35:05 A DIAGNOSTIC AR 2 MOD 5 Fr catheter ([id number]) was advanced over the wire and used for Procedure. 13:36:39 UNABLE TO ENAGE . CATH REMOVED 13:36:42 Catheter exchanged over wire. 13:37:15 A MULTIPACK Pigtail 5 Fr catheter was advanced over the wire and used for Procedure. 13:37:35 LV gram done using MENDOZA 13:37:43 Injector settings: Ml/sec: 10, Volume: 20, 13:38:00 LV hemodynamics recorded. 13:38:12 EF : 50 % 13:39:47 Aortic Root visualized 13:42:56 Catheter removed. 13:43:02 EXOSEAL 5Fr (EX500) opened to sterile field. 13:44:17 Sheath removed intact; hemostasis achieved with Exoseal to the Right Femoral artery. 13:44:57 Procedure ended.(Physican Out) 13:45:45 Fluoroscopy time 07.70 minutes. 13:45:49 Fluoroscopy dose: 670 mGy 13:45:49 Flurop Dose total: 670 13:45:58 Contrast amount:Isovue 300 128ml. 13:46:00 Sharps counted by scrub and verified by R.N. 13:46:12 Post-op/insertion site Right Femoral artery dressed using a 4 x 4 and Tegaderm. 13:46:15 Post right femoral artery:stable, clean and dry 13:46:23 Post-procedure physical assessment completed. ASA score P 2 - A patient with mild systemic disease as per Jose Byrd MD. 13:46:25 Post procedure rhythm: unchanged. 13:46:29 Estimated blood loss: 5 ml 13:46:30 Post procedure instruction explained to patient.Patient verbalizes understanding. 13:46:31 Patient needs reinforcement of post procedure teaching. 13:47:22 Procedure type changed to Cath procedure, Diagnostic procedure, LHC, LHC w/Coronaries w/Grafts, Aortic Root Angiography, Sedation Charges, Moderate Sedation up to 30 minutes 13:52:49 Procedure and supply charges have been captured, reviewed, submitted and are correct. 13:52:52 Procedure Complication : No complications 13:52:54 Vital chart was stopped 13:52:54 See physician's report for complete and final results. 13:52:56 Report given to Pre/Post Procedure Room. 13:52:59 Patient transfered to Pre/Post Procedure Room with Bed. 13:53:01 Procedure ended. 13:53:01 Full Disclosure recording stopped 13:53:04 End room use (Document Last) Device Usage Item Name Manufacture Quantity Catalog Number Hospital Part Current M inimal Lot# / Charge Number Stock Stock Serial# Code ACIST Syringe Acist 1 09635 [id number] [id number] [id number] 2 0 (13334) [employer] Bag Decanter Microtek 1 2001S 649086 57673 498829 5 () Medical Inc. Medline Cath Cardinal 1 [id number] 177162 98315 811959 5 Pack Health ([id number]) DIAGNOSTIC WIRE St Pepito 1 591930 471446 918996 692828 3 0 .035 260cm J wire (616237) ACIST Hand Acist 1 62102 940494 953004 175011 5 Control (05862) [employer] ACIST Manifold Acist 1 48445 861697 356277 034451 5 (08945) [employer] DIAGNOSTIC Cardinal 1 [id number] 464848 27370 422622 3 0 Multipack 5Fr Health catheter set (BO1928) Tegaderm 4 x 4 3M 1 1626W 849722 026107 581685 5 (1626W) SHEATH Prelude Merit 1 [id number]-[id number] 560888 209908 746776 5 5Fr 0.035 Medical (NDM-0L-44-035) MULTIPACK JL Cardinal 1 284825 5 4.0 5Fr Health catheter DIAGNOSTIC JL 5 Cardinal 1 [id number] 674609 418032 353436 5 5Fr catheter Health (404487C) DIAGNOSTIC AR Cardinal 1 [id number] 097637 874195 277325 1 5 MOD 5Fr Health Catheter (117594I) DIAGNOSTIC AL 1 Cardinal 1 [id number] 658945 655666 113209 1 5 5Fr catheter Health (974949O) DIAGNOSTIC LCB Cardinal 1 [id number] 341743 902127 486337 5 5Fr catheter Health (054309H) MULTIPACK 3DRC Cardinal 1 825831 5 5Fr catheter Health DIAGNOSTIC AR 2 Cardinal 1 164913U 924013 267538 638959 2 0 MOD 5 Fr Health catheter (442650E) MULTIPACK Cardinal 1 036645 5 Pigtail 5 Fr Health catheter EXOSEAL 5Fr Cardinal 1 EX500 228971 459226 546810 1 0 (EX500) Health Signature Audit [place] Stage Time Signature Unsigned Intra-Procedure 04/14/2018 Pippa Oneal 1:55:10 PM RT(R) Signatures Monitor : Rose Signature : Counts RT Date : Time : Monitor : Pippa Oneal Signature : RT Date : Time : [address] [place] [address]
[2018-04-14 11:52] VITALS: BP 160/78; Ht 157.5 cm; Wt 66.8 kg
[2018-04-14 12:02] LABS: BASOPHILS 0 % (0-2); EOSINOPHILS 2.7 % (0-7); HEMATOCRIT 31.8 % (36.0-48.0); HEMOGLOBIN 10.6 g/dL (12-16); IMMATURE GRANULOCYTES 0.3 % (0-5); LYMPHOCYTES 15.2 % (15-50); MCH 29.7 pg (26.0-34.0); MCHC 33.3 g/dL (31.0-37.0); MCV 89.1 fL (80.0-100.0); MEAN PLATELET VOLUME 10.6 fL (7.4-10.4); MONOCYTES 6.5 % (2-11); NEUTROPHILS 75.3 % (40-80); PLATELET COUNT 134 10x3/uL (130-400); RBC 3.57 10x6/uL (4.00-5.40); RDW 14.9 % (11.5-14.5); WBC 7.5 10x3/uL (4.8-10.8)
[2018-04-14 12:09] LABS: ANION GAP 14.5 mmol/L (8-16); CARBON DIOXIDE 24.6 mmol/L (21.0-32.0); POTASSIUM - SERUM 4.1 mmol/L (3.5-5.1)
== END 2018-04-14 16:20 | disposition home or self-care (01) ==
LOC: D.CATH 12:23
PROVIDERS: Internal Medicine Cardiovascular Disease
DX: I25.119 Atherosclerotic heart disease of native coronary artery with unspecified angina pectoris (principal); Z95.1 Presence of aortocoronary bypass graft; Z01.812 Encounter for preprocedural laboratory examination

== ENCOUNTER 2018-08-14 13:50 | Inpatient (IN) | payer MEDICARE ==
[~2018-08-14] VITALS: Ht 157.5 cm; Wt 69.8 kg
[2018-08-14] MEDS ORDERED: ROCALTROL0.25 MCG PO (14:21)
[2018-08-14] MEDS ORDERED: VALTREX1000 MG PO (14:22)
[2018-08-14] MEDS ORDERED: KLOR-CON M2020 MEQ PO (14:22)
[2018-08-14] MEDS ORDERED: STERAPRED DS 1010 MG PO (14:22)
[2018-08-14 14:55] LABS: BASOPHILS 0.1 % (0-2); EOSINOPHILS 0.6 % (0-7); HEMATOCRIT 29.1 % (36.0-48.0); HEMOGLOBIN 9.7 g/dL (12-16); IMMATURE GRANULOCYTES 0.4 % (0-5); LYMPHOCYTES 10.9 % (15-50); MCH 29.1 pg (26.0-34.0); MCHC 33.3 g/dL (31.0-37.0); MCV 87.4 fL (80.0-100.0); MONOCYTES 7.8 % (2-11); NEUTROPHILS 80.2 % (40-80); PLATELET COUNT 121 10x3/uL (130-400); RBC 3.33 10x6/uL (4.00-5.40); RDW 15.2 % (11.5-14.5); WBC 10.9 10x3/uL (4.8-10.8)
[2018-08-14 15:15] LABS: APTT 35.2 SECONDS (22.8-39.4); INR 1.31 (0.85-1.17); PROTIME 15.7 SECONDS (11.6-15.0)
[2018-08-14 15:16] LABS: D-DIMER-QUANTITATIVE 0.94 ug/mLFEU (0.20-0.54)
[2018-08-14 15:22] LABS: ALBUMIN 3.3 g/dL (3.4-5.0); ALKALINE PHOSPHATASE 73 U/L (46-116); ALT (SGPT) 10 U/L (10-68); BILIRUBIN - TOTAL 0.54 mg/dL (0.2-1.3); CALC OSMOLALITY 293 mosm/kg (275-300); CALCIUM 7.3 mg/dL (8.5-10.1); CARBON DIOXIDE 20.2 mmol/L (21.0-32.0); CHLORIDE - SERUM 94 mmol/L (98-107); CREATININE - SERUM 5.4 mg/dL (0.6-1.3); GLUCOSE 125 mg/dL (74-106); POTASSIUM - SERUM 4.2 mmol/L (3.5-5.1); PROTEIN - SERUM 8.3 g/dL (6.4-8.2); SODIUM 132 mmol/L (136-145); UREA NITROGEN 91 mg/dL (7-18); eGFR NON AFRICAN AMERICAN 8 mL/min (90-120)
[2018-08-14 15:36] LABS: CKMB 2.1 U/L (0.0-3.6)
[2018-08-14 15:55] LABS: TROPONIN-I 0.402 ng/mL (0.000-0.060)
[2018-08-15 00:40] VITALS: BP 101/59; BMI 25.6
[2018-08-15 07:50] LABS: ANION GAP 21.5 mmol/L (8-16); CARBON DIOXIDE 18.7 mmol/L (21.0-32.0); CREATININE - SERUM 5.6 mg/dL (0.6-1.3); POTASSIUM - SERUM 4.2 mmol/L (3.5-5.1)
[2018-08-15 07:51] LABS: BASOPHILS 0.1 % (0-2); EOSINOPHILS 0.1 % (0-7); HEMATOCRIT 26.1 % (36.0-48.0); HEMOGLOBIN 8.8 g/dL (12-16); IMMATURE GRANULOCYTES 0.3 % (0-5); LYMPHOCYTES 7.3 % (15-50); MCH 29.5 pg (26.0-34.0); MCHC 33.7 g/dL (31.0-37.0); MCV 87.6 fL (80.0-100.0); MEAN PLATELET VOLUME 11.4 fL (7.4-10.4); MONOCYTES 2.3 % (2-11); NEUTROPHILS 89.9 % (40-80); PLATELET COUNT 105 10x3/uL (130-400); RBC 2.98 10x6/uL (4.00-5.40); RDW 14.8 % (11.5-14.5)
[2018-08-15 08:14] VITALS: BP 171/83
[2018-08-15 08:19] LABS: WBC 7.4 10x3/uL (4.8-10.8)
[2018-08-15 08:40] LABS: CALCIUM 6.8 mg/dL (8.5-10.1)
[2018-08-15 11:01] VITALS: Ht 157.5 cm; Wt 69.8 kg
[2018-08-15 11:41] VITALS: BP 160/78
[2018-08-15 15:04] VITALS: BP 158/72
[2018-08-15 21:18] VITALS: BP 163/73
[2018-08-16 01:42] VITALS: BP 188/84
[2018-08-16 03:38] LABS: APPEARANCE HAZY (CLEAR); BACTERIA MODERATE /hpf (NONE SEEN); BILIRUBIN NEGATIVE (NEGATIVE); COLOR YELLOW (YELLOW); EPITHELIAL CELLS RARE /hpf (0-5); GLUCOSE 50 mg/dL (NEGATIVE); KETONE NEGATIVE (NEGATIVE); NITRITE NEGATIVE (NEGATIVE); PROTEIN TRACE mg/dL (NEGATIVE); RED CELLS - URINE 0-5 /hpf (0-5); SPECIFIC GRAVITY 1.015 (1.005-1.020); UROBILINOGEN NORMAL (NORMAL); YEAST RARE /hpf (NONE SEEN)
[2018-08-16 05:22] VITALS: BP 179/83
[2018-08-16 06:35] LABS: BASOPHILS 0 % (0-2); EOSINOPHILS 0 % (0-7); HEMATOCRIT 25.3 % (36.0-48.0); HEMOGLOBIN 8.6 g/dL (12-16); IMMATURE GRANULOCYTES 0.2 % (0-5); LYMPHOCYTES 7.4 % (15-50); MCH 29.2 pg (26.0-34.0); MCV 85.8 fL (80.0-100.0); MEAN PLATELET VOLUME 11.8 fL (7.4-10.4); MONOCYTES 6.5 % (2-11); NEUTROPHILS 85.9 % (40-80); PLATELET COUNT 106 10x3/uL (130-400); RBC 2.95 10x6/uL (4.00-5.40); RDW 14.3 % (11.5-14.5); WBC 6.2 10x3/uL (4.8-10.8)
[2018-08-16 06:57] LABS: % SATURATION 32 % (15-55); IRON 73 ug/dl (35-150); TOTAL IRON BIND CAPACITY 227 ug/dl (260-445); UNSAT IRON BIND CAPACITY 154 ug/dl (150-375)
[2018-08-16 07:10] LABS: CREATININE - SERUM 4.7 mg/dL (0.6-1.3); PHOSPHOROUS 6.8 mg/dL (2.5-4.9)
[2018-08-16 07:20] LABS: ANION GAP 16.8 mmol/L (8-16); CARBON DIOXIDE 25.2 mmol/L (21.0-32.0)
[2018-08-16 07:25] LABS: CALCIUM 6.5 mg/dL (8.5-10.1)
[2018-08-16 07:50] VITALS: BP 181/78
[2018-08-16 08:17] LABS: HEPATITIS C ANTIBODY <0.1 S/CO RAT (0.0-0.9)
[2018-08-16 13:43] VITALS: BP 159/75
[2018-08-16 20:30] VITALS: BP 184/88
[2018-08-17 00:30] VITALS: BP 150/74
[2018-08-17 04:30] VITALS: BP 147/49
[2018-08-17 06:28] LABS: BASOPHILS 0 % (0-2); EOSINOPHILS 0 % (0-7); HEMATOCRIT 26.5 % (36.0-48.0); HEMOGLOBIN 8.8 g/dL (12-16); IMMATURE GRANULOCYTES 1.3 % (0-5); LYMPHOCYTES 10.8 % (15-50); MCHC 33.2 g/dL (31.0-37.0); MCV 87.5 fL (80.0-100.0); MEAN PLATELET VOLUME 11.3 fL (7.4-10.4); MONOCYTES 7.4 % (2-11); NEUTROPHILS 80.5 % (40-80); PLATELET COUNT 111 10x3/uL (130-400); RBC 3.03 10x6/uL (4.00-5.40); WBC 7.1 10x3/uL (4.8-10.8)
[2018-08-17 07:03] LABS: ANION GAP 17.7 mmol/L (8-16); CARBON DIOXIDE 25.3 mmol/L (21.0-32.0)
[2018-08-17 07:05] LABS: CALCIUM 6.9 mg/dL (8.5-10.1); CREATININE - SERUM 3.4 mg/dL (0.6-1.3)
[2018-08-17 07:25] VITALS: BP 162/76
[2018-08-17 21:41] VITALS: BP 121/53
[2018-08-18 00:43] VITALS: BP 142/65
[2018-08-18 04:17] VITALS: BP 142/71
[2018-08-18 05:54] LABS: BASOPHILS 0.1 % (0-2); EOSINOPHILS 1.1 % (0-7); HEMATOCRIT 25.2 % (36.0-48.0); HEMOGLOBIN 8.3 g/dL (12-16); IMMATURE GRANULOCYTES 1.5 % (0-5); LYMPHOCYTES 15.5 % (15-50); MCH 29.2 pg (26.0-34.0); MCHC 32.9 g/dL (31.0-37.0); MCV 88.7 fL (80.0-100.0); MEAN PLATELET VOLUME 11.1 fL (7.4-10.4); MONOCYTES 12.7 % (2-11); NEUTROPHILS 69.1 % (40-80); PLATELET COUNT 106 10x3/uL (130-400); RBC 2.84 10x6/uL (4.00-5.40); RDW 14.6 % (11.5-14.5); WBC 7.1 10x3/uL (4.8-10.8)
[2018-08-18 06:11] LABS: ANION GAP 15.3 mmol/L (8-16); CARBON DIOXIDE 25.5 mmol/L (21.0-32.0); CREATININE - SERUM 2.9 mg/dL (0.6-1.3); PHOSPHOROUS 3.4 mg/dL (2.5-4.9); POTASSIUM - SERUM 3.8 mmol/L (3.5-5.1)
[2018-08-18 06:13] LABS: CALCIUM 6.9 mg/dL (8.5-10.1)
[2018-08-18 07:45] VITALS: BP 158/70
[2018-08-18 08:39] LABS: % SATURATION 9 % (15-55); IRON 20 ug/dl (35-150); TOTAL IRON BIND CAPACITY 208 ug/dl (260-445); UNSAT IRON BIND CAPACITY 188 ug/dl (150-375)
[2018-08-18 17:22] VITALS: BP 160/67
[2018-08-18 20:51] VITALS: BP 155/67
[2018-08-19 00:02] VITALS: BP 162/72
[2018-08-19 04:42] VITALS: BP 162/72
[2018-08-19 06:22] LABS: BASOPHILS 0 % (0-2); HEMATOCRIT 26.9 % (36.0-48.0); HEMOGLOBIN 8.6 g/dL (12-16); IMMATURE GRANULOCYTES 1.6 % (0-5); LYMPHOCYTES 11.7 % (15-50); MCH 28.7 pg (26.0-34.0); MCV 89.7 fL (80.0-100.0); MEAN PLATELET VOLUME 11.1 fL (7.4-10.4); MONOCYTES 10.1 % (2-11); NEUTROPHILS 74.6 % (40-80); PLATELET COUNT 117 10x3/uL (130-400); RDW 14.9 % (11.5-14.5); WBC 7.4 10x3/uL (4.8-10.8)
[2018-08-19 06:43] LABS: CALCIUM 7.4 mg/dL (8.5-10.1); CARBON DIOXIDE 25.8 mmol/L (21.0-32.0); CREATININE - SERUM 2.5 mg/dL (0.6-1.3); PHOSPHOROUS 3.3 mg/dL (2.5-4.9); POTASSIUM - SERUM 3.8 mmol/L (3.5-5.1)
[2018-08-19 07:28] LABS: FOLATE (FOLIC ACID) - SERUM 4.6 ng/mL (>3.0)
[2018-08-19 08:15] VITALS: BP 157/78
[2018-08-19 11:46] VITALS: BP 123/64
[2018-08-19 15:07] VITALS: BP 136/65
--- NOTE | 2018-08-19 17:13 | MORECARE ---
CASE MANAGEMENT DISCHARGE SUMMARY PATIENT: RUTH BECERRIL UNIT: [id number] ADM DATE: 08/14/18 AGE: 68 : 50 SEX: F ROOM/BED: D.0067 AUTHOR: EDWIN LUCAS PHYSICIAN: REFERRING PHYSICIAN: ESTHER ANDREW MD DATE OF SERVICE: 08/19/18 Discharge Plan Patient Name: RUTH BECERRIL Facility[facility]:[place] : 1950 Planned Disposition: Home Anticipated Discharge Date: 08/20/18 Discharge Date: Expected LOS: 6 Initial Reviewer: [email or web address] Initial Review Date: 08/19/2018 Generated: 08/19/18 6:13 pm DCPIA - Discharge Planning Initial Assessment Updated by [email or web address]: Frederic Pillai on 08/19/18 5:12 pm * Is the patient Alert and Oriented? Yes * How many steps to enter\exit or inside your home? 2 w/RAILS * PCP DR. RACHEL * Pharmacy [facility] IN [place] * Preadmission Environment Home with Family * ADLs Independent * Equipment Cane Glucometer Nebulizer Shower Chair Walker Wheelchair * Other Equipment NO MEDICAL EQUIPMENT PROVIDER PREFERENCE * List name and contact numbers for known caregivers / representatives who currently or will assist patient after discharge: DM BECERRIL, SPOUSE, * Verbal permission to speak to the caregivers and representatives has been obtained from the patient. N/A * Community resources currently utilized None * Please name any agencies selected above. NONE * Additional services required to return to the preadmission environment? No * Can the patient safely return to the preadmission environment? Yes * Has this patient been hospitalized within the prior 30 days at any hospital? No Coverage Notice Reviewer: [email or web address] - Frederic Pillai Notice Issued Date-Time: 08/19/2018 15:45 Notice Type: IM Discharge Notice Notice Delivered To: Patient Relationship to Patient: Supervisor Tan Room Name: Delivery Method: HAND - Hand Delivered Mara Days: Prior Verbal Notification: Recipient Understood Notice: Yes Recipient Signature: Yes Med Rec Note Co-signed by Attending: Coverage Notice Comment: Patient Name: RUTH BECERRIL Page [id number] at 1713 All edits/amendments must be made on the electronic document DICTATION DATE: 08/19/181711 ARTISAN PLASTERER: DALE 08/19/181711 RPT#: [id number] DE DATE: STATUS: ADM IN [facility] [address] [place] [address] END OF REPORT
--- NOTE | 2018-08-19 17:20 | MORECARE ---
CASE MANAGEMENT DISCHARGE SUMMARY PATIENT: RUTH BECERRIL UNIT: [id number] ADM DATE: 08/14/18 AGE: 68 : 50 SEX: F ROOM/BED: D.4071 AUTHOR: EDWIN LUCAS PHYSICIAN: REFERRING PHYSICIAN: ESTHER ESCOBAR MD DATE OF SERVICE: 08/19/18 Discharge Plan Patient Name: RUTH BECERRIL Facility: [facility]:[place] : 1950 Planned Disposition: Home Anticipated Discharge Date: 08/20/18 Discharge Date: Expected LOS: 6 Initial Reviewer: [id number] Initial Review Date: 08/19/2018 Generated: 08/19/18 6:20 pm Comments DCP- Discharge Planning Updated by [email or web address]: Frederic Pillai on 08/19/18 4:[address] Patient Name: RUTH BECERRIL Admission Status: ER Accout number: [id number] Admission Date: 08-14-2018 : 1950 Admission Diagnosis:ACUTE KIDNEY FAILURE, UNSPECIFIED Attending: Esther Escobar Current LOS: 5 Anticipated DC Date: 08-20-2018 Planned Disposition: Home Primary Insurance: MEDICARE A & B Discharge Planning Comments: CM RECEIVED ORDER FOR DISCHARGE PLANNING. CM MET WITH PT IN ROOM TO DISCUSS DISCHARGE PLANNING AND NEEDS. PT REPORTS LIVING AT HOME INDEPENDENTLY WITH SPOUSE. PT HAS CANE, GLUCOMETER, NEBULIZER, SHOWER CHAIR, WALKER AND WHEELCHAIR WITH NO MEDICAL EQUIPMENT PROVIDER PREFERENCE. PT HAS NO OUTSIDE SERVICES ASSISTING IN THE HOME. CM DISCUSSED AVAILABILITY OF HOME HEALTH, REHAB SERVICES AND MEDICAL EQUIPMENT. PT DENIES DISCHARGE NEEDS, REPORTS HER SPOUSE WILL PICK HER UP FOR DISCHARGE HOME. IMPORTANT MESSAGE FROM MEDICARE PROVIDED AND EXPLAINED. PT DISCHARGING HOME WITH SPOUSE, DENIES NEEDS. SPOUSE TO TRANSPORT HOME. Nursery Hand: Frederic Pillai DCPIA - Discharge Planning Initial Assessment Updated by [id number]: Frederic Pillai on 08/19/18 5:12 pm * Is the patient Alert and Oriented? Yes * How many steps to enter\exit or inside your home? 2 w/RAILS * PCP DR. RACHEL * Pharmacy [facility] IN [place] * Preadmission Environment Home with Family * ADLs Independent * Equipment Cane Glucometer Nebulizer Shower Chair Walker Wheelchair * Other Equipment NO MEDICAL EQUIPMENT PROVIDER PREFERENCE * List name and contact numbers for known caregivers / representatives who currently or will assist patient after discharge: DM BECERRIL, SPOUSE, * Verbal permission to speak to the caregivers and representatives has been obtained from the patient. N/A * Community resources currently utilized None * Please name any agencies selected above. NONE * Additional services required to return to the preadmission environment? No * Can the patient safely return to the preadmission environment? Yes * Has this patient been hospitalized within the prior 30 days at any hospital? No Coverage Notice Reviewer: [id number] Nisreen Pillai Notice Issued Date-Time: 08/19/2018 15:45 Notice Type: IM Discharge Notice Notice Delivered To: Patient Relationship to Patient: Manager Investment Banking Name: Delivery Method: HAND - Hand Delivered Mara Days: Prior Verbal Notification: Recipient Understood Notice: Yes Recipient Signature: Yes Med Rec Note Co-signed by Attending: Coverage Notice Comment: Last DP export: 08/19/18 4:13 p Patient Name: RUTH BECERRIL Page [id number] at 1720 All edits/amendments must be made on the electronic document DICTATION DATE: 08/19/181719 RANGELAND MANAGEMENT SPECIALIST: DALE 08/19/18 172 RPT#: [id number] DC DATE: STATUS: ADM IN [facility] [address] [place] [address] END OF REPORT
[2018-08-19 21:03] VITALS: BP 163/73
[2018-08-20 00:31] VITALS: BP 157/75
[2018-08-20 06:09] LABS: BASOPHILS 0.1 % (0-2); HEMATOCRIT 25.8 % (36.0-48.0); HEMOGLOBIN 8.4 g/dL (12-16); IMMATURE GRANULOCYTES 2.8 % (0-5); LYMPHOCYTES 10.3 % (15-50); MCH 29.3 pg (26.0-34.0); MCHC 32.6 g/dL (31.0-37.0); MCV 89.9 fL (80.0-100.0); MEAN PLATELET VOLUME 10.8 fL (7.4-10.4); MONOCYTES 11.4 % (2-11); NEUTROPHILS 73.4 % (40-80); PLATELET COUNT 124 10x3/uL (130-400); RBC 2.87 10x6/uL (4.00-5.40); RDW 15.2 % (11.5-14.5); WBC 8.7 10x3/uL (4.8-10.8)
[2018-08-20 06:17] VITALS: BP 143/71
[2018-08-20 06:22] LABS: ANION GAP 12.2 mmol/L (8-16); CALCIUM 7.7 mg/dL (8.5-10.1); CARBON DIOXIDE 27.5 mmol/L (21.0-32.0); CREATININE - SERUM 2.1 mg/dL (0.6-1.3); PHOSPHOROUS 2.8 mg/dL (2.5-4.9); POTASSIUM - SERUM 3.7 mmol/L (3.5-5.1)
--- NOTE | 2018-08-20 08:27 | MORECARE ---
CASE MANAGEMENT DISCHARGE SUMMARY PATIENT: RUTH BECERRIL UNIT: [id number] ADM DATE: 08/14/18 AGE: 68 : 50 SEX: F ROOM/BED: D.1811 AUTHOR: EDWIN LUCAS PHYSICIAN: REFERRING PHYSICIAN: ESTHER ESCOBAR MD DATE OF SERVICE: 08/20/18 Discharge Plan Patient Name: RUTH BECERRIL Facility: [facility]:[place] : 1950 Planned Disposition: Home Anticipated Discharge Date: 08/20/18 Discharge Date: Expected LOS: 6 Initial Reviewer: [email or web address] Initial Review Date: 08/19/2018 Generated: 08/20/18 9:26 am Comments DCP- Discharge Planning Updated by [email or web address]: Frederic Pillai on 08/19/18 4:[address] Patient Name: RUTH BECERRIL Admission Status: ER Accout number: [id number] Admission Date: 08-14-2018 : 1950 Admission Diagnosis:ACUTE KIDNEY FAILURE, UNSPECIFIED Attending: Esther Escobar Current LOS: 5 Anticipated DC Date: 08-20-2018 Planned Disposition: Home Primary Insurance: MEDICARE A & B Discharge Planning Comments: CM RECEIVED ORDER FOR DISCHARGE PLANNING. CM MET WITH PT IN ROOM TO DISCUSS DISCHARGE PLANNING AND NEEDS. PT REPORTS LIVING AT HOME INDEPENDENTLY WITH SPOUSE. PT HAS CANE, GLUCOMETER, NEBULIZER, SHOWER CHAIR, WALKER AND WHEELCHAIR WITH NO MEDICAL EQUIPMENT PROVIDER PREFERENCE. PT HAS NO OUTSIDE SERVICES ASSISTING IN THE HOME. CM DISCUSSED AVAILABILITY OF HOME HEALTH, REHAB SERVICES AND MEDICAL EQUIPMENT. PT DENIES DISCHARGE NEEDS, REPORTS HER SPOUSE WILL PICK HER UP FOR DISCHARGE HOME. IMPORTANT MESSAGE FROM MEDICARE PROVIDED AND EXPLAINED. PT DISCHARGING HOME WITH SPOUSE, DENIES NEEDS. SPOUSE TO TRANSPORT HOME. Hearing Examiner: Frederic Pillai DCPIA - Discharge Planning Initial Assessment Updated by [id number]: Frederic Pillai on 08/19/18 5:12 pm * Is the patient Alert and Oriented? Yes * How many steps to enter\exit or inside your home? 2 w/RAILS * PCP DR. RACHEL * Pharmacy [facility] IN [place] * Preadmission Environment Home with Family * ADLs Independent * Equipment Cane Glucometer Nebulizer Shower Chair Walker Wheelchair * Other Equipment NO MEDICAL EQUIPMENT PROVIDER PREFERENCE * List name and contact numbers for known caregivers / representatives who currently or will assist patient after discharge: DM BECERRIL, SPOUSE, * Verbal permission to speak to the caregivers and representatives has been obtained from the patient. N/A * Community resources currently utilized None * Please name any agencies selected above. NONE * Additional services required to return to the preadmission environment? No * Can the patient safely return to the preadmission environment? Yes * Has this patient been hospitalized within the prior 30 days at any hospital? No Coverage Notice Reviewer: [id number] Nisreen Pillai Notice Issued Date-Time: 08/19/2018 15:45 Notice Type: IM Discharge Notice Notice Delivered To: Patient Relationship to Patient: Cutter Operator Helper Name: Delivery Method: HAND - Hand Delivered Mara Days: Prior Verbal Notification: Recipient Understood Notice: Yes Recipient Signature: Yes Med Rec Note Co-signed by Attending: Coverage Notice Comment: Last DP export: 08/19/18 4:20 p Patient Name: RUTH BECERRIL Page [phone] at 0827 All edits/amendments must be made on the electronic document DICTATION DATE: 08/20/18825 PHARMACEUTICAL SALESPERSON: DALE 08/20/18825 RPT#: [id number] DC DATE: STATUS: ADM IN [facility] [address] [place] [address] END OF REPORT
[2018-08-20 08:35] VITALS: BP 136/71
--- NOTE | 2018-08-20 10:17 | MORECARE ---
CASE MANAGEMENT DISCHARGE SUMMARY PATIENT: RUTH BECERRIL UNIT: [id number] ADM DATE: 08/14/18 AGE: 68 : 50 SEX: F ROOM/BED: D.1908 AUTHOR: EDWIN LUCAS PHYSICIAN: REFERRING PHYSICIAN: ESTHER ESCOBAR MD DATE OF SERVICE: 08/20/18 Discharge Plan Patient Name: RUTH BECERRIL Facility: [facility]:[place] : 1950 Planned Disposition: Home Anticipated Discharge Date: 08/20/18 Discharge Date: Expected LOS: 6 Initial Reviewer: [email or web address] Initial Review Date: 08/19/2018 Generated: 08/20/18 11:17 am Comments DCP- Discharge Planning Updated by [id number]: Frederic Pillai on 08/20/18 9:[address] Patient Name: RUTH BECERRIL Encounter No: [id number] : 1950 Primary Insurance: MEDICARE A & B Anticipated DC Date: 08-20-2018 Planned Disposition: Home DCP follow-up note: CM RECEIVED DISCHARGE PLANNING AND HOME HEALTH ORDER. CM MET WITH PT IN ROOM TO DISCUSS ORDER WELL DISCHARGE PLANNING AND NEEDS. PT DENIES NEED FOR HOME HEALTH. PT DENIES DISCHARGE NEEDS. PT REPORTS HER SPOUSE IS HERE TO PICK HER UP FOR DISCHARGE HOME TODAY. CM DISCUSSED HOW TO CONTACT DR. RACHEL OR NURSE IN OFFICE AFTER DISCHARGE IF PT CHANGES MIND AND WANTS HOME HEALTH SERVICES. PT REPORTS UNDERSTANDING. MANAGER WEB APPLICATION NURSE NOTIFIED. EFREM Guajardo DCP- Discharge Planning Updated by [email or web address]: Frederic Pillai on 08/19/18 4:[address] Patient Name: RUTH BECERRIL Admission Status: ER Accout number: [id number] Admission Date: 08-14-2018 : 1950 Admission Diagnosis:ACUTE KIDNEY FAILURE, UNSPECIFIED Attending: Estehr Escobar Current LOS: 5 Anticipated DC Date: 08-20-2018 Planned Disposition: Home Primary Insurance: MEDICARE A & B Discharge Planning Comments: CM RECEIVED ORDER FOR DISCHARGE PLANNING. CM MET WITH PT IN ROOM TO DISCUSS DISCHARGE PLANNING AND NEEDS. PT REPORTS LIVING AT HOME INDEPENDENTLY WITH SPOUSE. PT HAS CANE, GLUCOMETER, NEBULIZER, SHOWER CHAIR, WALKER AND WHEELCHAIR WITH NO MEDICAL EQUIPMENT PROVIDER PREFERENCE. PT HAS NO OUTSIDE SERVICES ASSISTING IN THE HOME. CM DISCUSSED AVAILABILITY OF HOME HEALTH, REHAB SERVICES AND MEDICAL EQUIPMENT. PT DENIES DISCHARGE NEEDS, REPORTS HER SPOUSE WILL PICK HER UP FOR DISCHARGE HOME. IMPORTANT MESSAGE FROM MEDICARE PROVIDED AND EXPLAINED. PT DISCHARGING HOME WITH SPOUSE, DENIES NEEDS. SPOUSE TO TRANSPORT HOME. Carpet Sewer: Frederic Pillai DCPIA - Discharge Planning Initial Assessment Updated by [id number]: Frederic Pillai on 08/19/18 5:12 pm * Is the patient Alert and Oriented? Yes * How many steps to enter\exit or inside your home? 2 w/RAILS * PCP DR. RACHEL * Pharmacy [facility] IN [place] * Preadmission Environment Home with Family * ADLs Independent * Equipment Cane Glucometer Nebulizer Shower Chair Walker Wheelchair * Other Equipment NO MEDICAL EQUIPMENT PROVIDER PREFERENCE * List name and contact numbers for known caregivers / representatives who currently or will assist patient after discharge: DM BECERRIL, SPOUSE, * Verbal permission to speak to the caregivers and representatives has been obtained from the patient. N/A * Community resources currently utilized None * Please name any agencies selected above. NONE * Additional services required to return to the preadmission environment? No * Can the patient safely return to the preadmission environment? Yes * Has this patient been hospitalized within the prior 30 days at any hospital? No Coverage Notice Reviewer: [id number] - Frederic Pillai Notice Issued Date-Time: 08/19/2018 15:45 Notice Type: IM Discharge Notice Notice Delivered To: Patient Relationship to Patient: Electrical Cad Designer Name: Delivery Method: HAND - Hand Delivered Mara Days: Prior Verbal Notification: Recipient Understood Notice: Yes Recipient Signature: Yes Med Rec Note Co-signed by Attending: Coverage Notice Comment: Last DP export: 08/20/18 7:26 a Patient Name: RUTH BECERRIL Page [phone] at 1017 All edits/amendments must be made on the electronic document DICTATION DATE: 08/20/18 1017 VENDOR REPRESENTATIVES: DALE 08/20/18 1017 RPT#: [id number] DC DATE: STATUS: ADM IN [facility] [address] [place] [address] END OF REPORT
[2018-08-20 11:36] VITALS: BP 136/91
[2018-08-20] MEDS ORDERED: NIFEREX-150 CAP1 CA3 PO (12:16)
[2018-08-20] MEDS ORDERED: NEPHRO-VITE RX1 TAB PO (12:17)
--- NOTE | 2018-08-22 06:18 | DS ---
PATIENT:RUTH BHATIA :[birth year] MEDICAL RECORD: [id number] DISCHARGE SUMMARY ADMISSION DATE: 08/14/18 DISCHARGE DATE: 08/20/18 Ms. Bhatia is a 68-year-old white female that I follow in the office with chronic kidney disease stage III to IV, on the basis of diabetic nephropathy and hypertension. Creatinine approximately baseline is in the 2 range. She presented to the Emergency Room with increasing pain involving her left upper arm and scapular area and this turned out to be herpes zoster. She also was found to have acute renal failure with a creatinine above 6 with hyperkalemia and probable dehydration and was admitted for the above. HOSPITAL COURSE: The patient was found to have an iron deficiency anemia and was begun on iron replacement therapy. She required IV fluids throughout her hospitalization and her last creatinine was back to baseline of 2.1. She continued to receive IV iron, followed by oral iron. She did not require dialysis. Valtrex was discontinued due to her renal failure. Continued topical Zovirax and did well with this and her lesions have crusted. At the time of discharge, she did have some postherpetic neuralgia that was treated with some topical lidocaine. At the time of discharge, she was otherwise stable with her hemoglobin in the 8-9 range and we will consider Epogen as an outpatient. Her last creatinine was 2. DISCHARGE DIAGNOSES: 1. Acute renal failure on the basis of dehydration and possible medication effect. 2. Acute herpes zoster of left arm. 3. Iron deficiency anemia. 4. Diabetic nephropathy. 5. History of hypertension. PLAN: The patient will be discharged today. I will see her in the office in 1-2 weeks. We will continue her oral iron. She will continue her diabetic diet, ambulation as tolerated, and topical lidocaine to her arm. DISCHARGE MEDICATIONS: Lidocaine as mentioned b.i.d., ferrous sulfate 325 daily. We will continue tramadol p.r.n., Neurontin 100 mg t.i.d., calcitriol 0.5 daily, Zoloft 50 mg daily, Protonix 40 mg daily, Humalog insulin on a q.6 sliding scale basis prior to meals, and Coreg 12.5 mg b.i.d. TRANSINT:[id number] Voice Confirmation ID: [id number] DOCUMENT ID: [id number] EDGAR RACHEL MD at 0618 CC: [id number] DICTATION DATE: 08/20/18 0735 FELTMAKER: 08/21/18 0726 DIS IN 08/20/18 [facility] [address] [place] [address]
== END 2018-08-20 15:05 | disposition home or self-care (01) | DRG 683 ==
LOC: D.ER 13:50 → D.M2 19:46 → D.EDHOLD 19:46 → D.M2 20:59
PROVIDERS: Family Medicine; Internal Medicine Nephrology; ADMIT Internal Medicine Nephrology
DX: N17.9 Acute kidney failure, unspecified (principal); E87.2 Acidosis; B02.29 Other postherpetic nervous system involvement; E11.40 Type 2 diabetes mellitus with diabetic neuropathy, unspecified; J43.9 Emphysema, unspecified; I10 Essential (primary) hypertension; I25.10 Atherosclerotic heart disease of native coronary artery without angina pectoris; K21.9 Gastro-esophageal reflux disease without esophagitis; F32.9 Major depressive disorder, single episode, unspecified; F41.9 Anxiety disorder, unspecified; E87.5 Hyperkalemia; B02.9 Zoster without complications; D50.9 Iron deficiency anemia, unspecified; E11.21 Type 2 diabetes mellitus with diabetic nephropathy